=== PATIENT | male | born 1995 | race Caucasian/White ===

== ENCOUNTER 2022-02-15 12:49 | Inpatient (IN) ==
[2022-02-15] MEDS ORDERED: Ketorolac 30 MG/ML VIAL IVP ONE (13:11)
[2022-02-15] MEDS ORDERED: Ipratropium/Albuterol Neb 3 ML IH ONE (13:11)
[2022-02-15] MEDS ORDERED: Albuterol 2.5 MG/3 ML NEBULIZER IH ONE (13:11)
[2022-02-15] MEDS ORDERED: *HR* LORazepam 0.5 MG TABLET PO ONE (13:25)
[2022-02-15] MEDS ORDERED: Vancomycin 1,500 MG/265 ML IV.SOLN IVPB ONE (13:47)
[2022-02-15] MEDS ORDERED: cefTRIAXone 2,000 MG in 0.9 % Sodium Chloride 20 ML IVP ONE (13:47)
[2022-02-15] MEDS ORDERED: Nafcillin 2,000 MG in 0.9 % Sodium Chloride Mini Bag 100 ML IVPB ONE (13:47)
[2022-02-15] MEDS ORDERED: Iopamidol - 370 500 ML MLS IVP ONE (14:09)
[2022-02-15] MEDS: 0.9 % Sodium Chloride 1,000 ML IVC ONE ×2 (14:36→20:11)
[2022-02-15 14:41] LABS: Basophils % 0.1 %; Eosinophils # 0.1 K/mcL (0.0-0.6); Eosinophils % 0.6 %; Hematocrit 21.6 % (37.5-50.1); Hemoglobin 6.8 g/dL (12.9-16.9); Immature Granulocytes % 0.6 % (0-4); Lymphocytes # 1.8 K/mcL (0.6-4.6); Lymphocytes % 20.4 %; Mean Corpuscular HGB Conc 31.5 g/dL (31.6-35.5); Mean Corpuscular Hemoglobin 25.1 pg (28.0-33.3); Mean Corpuscular Volume 79.7 fL (83.0-100.0); Mean Platelet Volume 10.1 fL (9.4-12.4); Monocytes # 0.7 K/mcL (0.0-1.3); Monocytes % 7.7 %; Neutrophils # 6.1 K/mcL (1.6-8.9); Platelet Count 304 K/mcL (140-400); Red Blood Count 2.71 M/mcL (4.19-5.50); Red Cell Distribution Width 16.7 % (11.5-14.5); Segmented Neutrophils % 70.6 %; White Blood Count 8.6 K/mcL (4.3-11.1)
[2022-02-15 15:09] LABS: Alanine Aminotransferase 7 Units/L (7-52); Albumin 2.9 g/dL (3.5-5.7); Albumin/Globulin Ratio 0.7 (1.1-2.2); Alkaline Phosphatase 58 Units/L (34-104); Aspartate Amino Transferase 11 Units/L (13-39); BUN/Creatinine Ratio 11 (6-26); Bilirubin,Direct 0.2 mg/dL (0.0-0.2); Bilirubin,Indirect 0.3 mg/dL (0.0-1.0); Bilirubin,Total 0.5 mg/dL (0.3-1.0); Blood Urea Nitrogen 8 mg/dL (6-20); Carbon Dioxide 28 mEq/L (23-29); Chloride 94 mEq/L (98-107); Globulin 4.4 g/dL (2.4-3.5); Glucose 115 mg/dL (70-105); Lipase < 3 Units/L (11-82); Osmolality,Calculated 267 (280-300); Potassium 3.9 mEq/L (3.5-5.1); Sodium 129 mEq/L (136-145); Total Protein 7.3 g/dL (6.4-8.9); Troponin I < 0.03 ng/mL (< 0.04); eGFR For African Americans > 60 (> 60); eGFR For Non-African Americans > 60 (> 60)
[2022-02-15] MEDS ORDERED: *HR* LORazepam 2 MG/ML VIAL IVP ONE (15:42)
[2022-02-15] MEDS ORDERED: 0.9 % Sodium Chloride 1,000 ML IVC ONE (16:24)
[2022-02-15] MEDS ORDERED: Perflutren Lipid Microsphere 1.3 ML in 0.9 % Sodium Chloride 8.7 ML IVP PRN (16:33)
[2022-02-15] MEDS ORDERED: Nicotine 2 MG GUM BC PRN (16:36)
[2022-02-15] MEDS ORDERED: *HR* LORazepam 2 MG/ML VIAL IVP PRN ×2 (17:01→20:51)
[2022-02-15] MEDS ORDERED: Ondansetron 4 MG/2 ML VIAL IVP PRN (17:12)
[2022-02-15] MEDS ORDERED: Melatonin 3 MG TABLET PO PRN (17:12)
[2022-02-15] MEDS ORDERED: Naloxone 0.4 MG/ML INJ IVP PRN (17:12)
[2022-02-15] MEDS ORDERED: Acetaminophen 325 MG TABLET PO PRN (17:12)
[2022-02-15] MEDS: Nafcillin 3,000 MG in 0.9 % Sodium Chloride 100 ML IVPB SCH (20:12)
[2022-02-15] MEDS: Nicotine 14 MG PATCH.TD24 TD SCH (20:12)
[2022-02-15] MEDS ORDERED: D5% in Water 1,000 ML IVC PRN (20:46)
[2022-02-15] MEDS ORDERED: *HR* Dextrose 50 % in Water (Syg) 50 ML SYRINGE IVP PRN (20:46)
[2022-02-15] MEDS ORDERED: Dextrose Gel 15 GM/37.5 ML TUBE PO PRN ×2 (20:46)
[2022-02-15] MEDS ORDERED: *HR* Dextrose 50 % in Water (Syg) 50 ML SYRINGE ONE (20:47)
[2022-02-15] MEDS ORDERED: *HR* LORazepam 2 MG/ML VIAL ONE (20:55)
[2022-02-15] MEDS ORDERED: 0.9 % Sodium Chloride 250 ML ONE (22:16)
[2022-02-16 04:33] LABS: Hemoglobin 7.2 g/dL (12.9-16.9); Mean Corpuscular HGB Conc 31.3 g/dL (31.6-35.5); Mean Corpuscular Hemoglobin 24.4 pg (28.0-33.3); Mean Platelet Volume 10.4 fL (9.4-12.4); Platelet Count 265 K/mcL (140-400); Red Blood Count 2.95 M/mcL (4.19-5.50); Red Cell Distribution Width 16.5 % (11.5-14.5); White Blood Count 7.2 K/mcL (4.3-11.1)
[2022-02-16 04:33] LABS: VBG HCO3 27 mEq/L (21-27); VBG PCO2 41 mmHg (41-51); VBG PH 7.43 pH Units (7.32-7.42); VBG PO2 207 mmHg (25-50)
[2022-02-16] MEDS: Nafcillin 3,000 MG in 0.9 % Sodium Chloride 100 ML IVPB SCH ×2 (04:54→05:47)
[2022-02-16 04:55] LABS: Alanine Aminotransferase 5 Units/L (7-52); Albumin 2.4 g/dL (3.5-5.7); Albumin/Globulin Ratio 0.6 (1.1-2.2); Alkaline Phosphatase 48 Units/L (34-104); Aspartate Amino Transferase 9 Units/L (13-39); BUN/Creatinine Ratio 17 (6-26); Bilirubin,Direct 0.2 mg/dL (0.0-0.2); Bilirubin,Indirect 0.5 mg/dL (0.0-1.0); Bilirubin,Total 0.7 mg/dL (0.3-1.0); Blood Urea Nitrogen 11 mg/dL (6-20); Calcium 7.5 mg/dL (8.6-10.3); Carbon Dioxide 26 mEq/L (23-29); Chloride 103 mEq/L (98-107); Globulin 3.8 g/dL (2.4-3.5); Glucose 107 mg/dL (70-105); Osmolality,Calculated 280 (280-300); Phosphorous 2.9 mg/dL (2.7-4.5); Potassium 4.2 mEq/L (3.5-5.1); Sodium 135 mEq/L (136-145); Total Protein 6.2 g/dL (6.4-8.9); eGFR For African Americans > 60 (> 60); eGFR For Non-African Americans > 60 (> 60)
[2022-02-16 05:14] LABS: Prothrombin Time 22.5 Seconds (9.4-12.1)
[2022-02-16] MEDS ORDERED: Calcium Gluconate 1gm/50mL 1 GM/50 ML BAG IVPB ONE (06:21)
[2022-02-16 06:47] LABS: Amphetamine Screen,Urine Negative ng/mL (Cutoff=1000); Barbiturate Screen,Urine Negative ng/mL (Cutoff=200)
[2022-02-16 06:48] LABS: Benzodiazepines Screen,Urine Positive ng/mL (Cutoff=300); Cannabinoid Screen,Urine Negative ng/mL (Cutoff = 50); Cocaine Screen,Urine Negative ng/mL (Cutoff= 300); Opiate Screen,Urine Negative ng/mL (Cutoff=300); Phencyclidine Screen,Urine Negative ng/mL (Cutoff=25)
[2022-02-16 08:08] LABS: Immature Reticulocyte % 5.6 % (11.0-38.0); Retculocyte # 0.03 M/mcL (0.05-0.10); Reticulocyte % 0.9 % (1.6-2.8)
[2022-02-16] MEDS: Nicotine 14 MG PATCH.TD24 TD SCH (08:19)
[2022-02-16] MEDS ORDERED: *HR* Propofol 200 MG/20 ML VIAL IVP ONE (08:37)
[2022-02-16] MEDS ORDERED: *HR* FentaNYL (PF) 100 MCG/2 ML VIAL ONE (08:37)
[2022-02-16] MEDS ORDERED: *HR* Midazolam HCl 2 MG/2 ML VIAL ONE (08:37)
[2022-02-16] MEDS ORDERED: Lidocaine HCL 4 ML Topical Solution (Laryng-O-Jet Kit Sterile Pak) TP ONE (08:38)
[2022-02-16] MEDS ORDERED: Ondansetron 4 MG/2 ML VIAL ONE (08:38)
[2022-02-16] MEDS ORDERED: Lidocaine -MPF 2% 5 ML VIAL ONE ×2 (08:38→10:28)
[2022-02-16] MEDS ORDERED: *HR* Rocuronium Bromide 50 MG/5 ML VIAL ONE (08:38)
[2022-02-16] MEDS ORDERED: *HR* Succinylcholine 200 MG/10 ML VIAL IVP ONE (08:38)
[2022-02-16] MEDS ORDERED: *HR* Phenylephrine 10 MG/ML VIAL ONE (08:39)
[2022-02-16] MEDS ORDERED: EPHEDrine 50 MG/ML VIAL ONE (08:39)
[2022-02-16] MEDS ORDERED: Ketamine HCL *QUVA* 50mg (1mL) SYRINGE ONE (08:42)
[2022-02-16] MEDS ORDERED: Dexmedetomidine HCl 400 MCG/100 ML MLS IVC ONE (08:49)
[2022-02-16] MEDS ORDERED: Albumin Human 5% 12.5 GM/250 ML IV.SOLN ONE (09:15)
[2022-02-16 10:39] LABS: Ferritin 457 ng/mL (20-250); Iron < 10 mcg/dL (65-175); Lactate Dehydrogenase 167 Units/L (140-271); Transferrin 160 mg/dL (203-362)
[2022-02-16] MEDS ORDERED: *HR* HYDROMORPHONE 2 MG/ML VIAL ONE (10:46)
[2022-02-16] MEDS ORDERED: *HR* Labetalol 20 MG/4 ML SYRINGE IVP PRN (11:24)
[2022-02-16] MEDS ORDERED: *HR* HYDROmorphone (PF) 1 MG/ML SYRINGE IVP PRN (11:24)
[2022-02-16] MEDS ORDERED: *HR* OxyCODONE Immed Rel 5 MG TABLET PO PRN (11:24)
[2022-02-16] MEDS ORDERED: Pregabalin 75 MG CAPSULE PO ONE (11:24)
[2022-02-16] MEDS ORDERED: *HR* HYDROmorphone 2 MG TABLET PO PRN (11:24)
[2022-02-16] MEDS ORDERED: Famotidine 20 MG/2 ML VIAL IVP ONE (11:24)
[2022-02-16] MEDS ORDERED: *HR* Midazolam HCl 2 MG/2 ML VIAL IVP PRN (11:25)
[2022-02-16 12:07] LABS: Enterococcus faecalis by PCR Not Detected (Not Detect); Enterococcus faecium by PCR Not Detected (Not Detect); Staphylococcus aureus by PCR DETECTED (Not Detect); mecA/C & MREJ (MRSA) Gene Not Detected (Not Detect)
[2022-02-16] MEDS ORDERED: Nicotine 2 MG GUM BC PRN (12:07)
[2022-02-16] MEDS ORDERED: Ondansetron 4 MG/2 ML VIAL IVP PRN (12:07)
[2022-02-16 12:08] LABS: A.calcoaceticus-baumannii cplx Not Detected (Not Detect); Bacteroides fragilis by PCR Not Detected (Not Detect); Candida albicans by PCR Not Detected (Not Detect); Candida auris by PCR Not Detected (Not Detect); Candida glabrata by PCR Not Detected (Not Detect); Candida krusei by PCR Not Detected (Not Detect); Candida parapsilosis by PCR Not Detected (Not Detect); Candida tropicalis by PCR Not Detected (Not Detect); Crypto. neoformans/gattii PCR Not Detected (Not Detect); Enterobacter cloacae Cmplx PCR Not Detected (Not Detect); Enterobacterales by PCR Not Detected (Not Detect); Escherichia coli by PCR Not Detected (Not Detect); Klebs. pneumoniae group by PCR Not Detected (Not Detect); Klebsiella aerogenes by PCR Not Detected (Not Detect); Klebsiella oxytoca by PCR Not Detected (Not Detect); Proteus by PCR Not Detected (Not Detect); Pseudomonas aeruginosa by PCR Not Detected (Not Detect); Salmonella species by PCR Not Detected (Not Detect); Serratia marcescens by PCR Not Detected (Not Detect); Staph epidermidis by PCR Not Detected (Not Detect); Staph lugdunensis by PCR Not Detected (Not Detect); Stenotrophomonas maltophilia Not Detected (Not Detect); Streptococcus agalactiae(B)PCR Not Detected (Not Detect); Streptococcus by PCR DETECTED (Not Detect); Streptococcus pneumoniae PCR Not Detected (Not Detect); Streptococcus pyogenes (A) PCR Not Detected (Not Detect)
[2022-02-16] MEDS: 0.9 % Sodium Chloride 1,000 ML IVC SCH (12:32)
[2022-02-16] MEDS: Ketorolac 30 MG/ML VIAL IVP SCH ×2 (12:36→20:29)
[2022-02-16] MEDS: Ipratropium/Albuterol Neb 3 ML IH SCH ×4 (13:20→22:51)
[2022-02-16] MEDS: SODIUM CHLORIDE 0.9% IVPB SCH (16:06)
[2022-02-16] MEDS: Gabapentin 300 MG CAPSULE PO SCH ×2 (16:06→20:27)
[2022-02-16] MEDS: NAFCILLIN IVPB SCH (16:06)
[2022-02-16] MEDS: *HR* Heparin 5,000 UNIT/ML VIAL SQ SCH ×2 (16:07→20:28)
[2022-02-16 16:19] LABS: Hematocrit 30.8 % (37.5-50.1); Hemoglobin 9.8 g/dL (12.9-16.9)
[2022-02-16] MEDS ORDERED: Nafcillin 3,000 MG in 0.9 % Sodium Chloride 100 ML IVPB SCH (17:00)
[2022-02-16 19:27] LABS: A.calcoaceticus-baumannii cplx Not Detected (Not Detect); Bacteroides fragilis by PCR Not Detected (Not Detect); CTX-M ESBL Gene Not Detected (Not Detect); Candida albicans by PCR Not Detected (Not Detect); Candida auris by PCR Not Detected (Not Detect); Candida glabrata by PCR Not Detected (Not Detect); Candida krusei by PCR Not Detected (Not Detect); Candida parapsilosis by PCR Not Detected (Not Detect); Candida tropicalis by PCR Not Detected (Not Detect); Crypto. neoformans/gattii PCR Not Detected (Not Detect); Enterobacter cloacae Cmplx PCR Not Detected (Not Detect); Enterobacterales by PCR Not Detected (Not Detect); Enterococcus faecalis by PCR Not Detected (Not Detect); Enterococcus faecium by PCR Not Detected (Not Detect); Escherichia coli by PCR Not Detected (Not Detect); IMP Carbapenem-Resist Gene Not Detected (Not Detect); Klebs. pneumoniae group by PCR Not Detected (Not Detect); Klebsiella aerogenes by PCR Not Detected (Not Detect); Klebsiella oxytoca by PCR Not Detected (Not Detect); NDM Carbapenem-Resist Gene Not Detected (Not Detect); OXA-48-like Carbap-Resist Gene Not Detected (Not Detect); Proteus by PCR Not Detected (Not Detect); Pseudomonas aeruginosa by PCR Not Detected (Not Detect); Salmonella species by PCR Not Detected (Not Detect); Serratia marcescens by PCR Not Detected (Not Detect); Staph epidermidis by PCR Not Detected (Not Detect); Staph lugdunensis by PCR Not Detected (Not Detect); Staphylococcus aureus by PCR Not Detected (Not Detect); Staphylococcus by PCR Not Detected (Not Detect); Stenotrophomonas maltophilia Not Detected (Not Detect); Streptococcus agalactiae(B)PCR Not Detected (Not Detect); Streptococcus by PCR DETECTED (Not Detect); Streptococcus pneumoniae PCR Not Detected (Not Detect); Streptococcus pyogenes (A) PCR Not Detected (Not Detect); VIM Carbapenem-Resist Gene Not Detected (Not Detect); blaKPC Carbapenem-Resist Gene Not Detected (Not Detect); mcr-1 Colistin-Resist Gene Not Detected (Not Detect); mecA/C & MREJ (MRSA) Gene Not Detected (Not Detect); mecA/C Methicillin-Resist Gene Not Detected (Not Detect); vanA/B Vancomycin-Resist Genes Not Detected (Not Detect)
[2022-02-16] MEDS: Melatonin 3 MG TABLET PO PRN (20:28)
[2022-02-16] MEDS: Famotidine 20 MG TABLET PO SCH (20:28)
[2022-02-16] MEDS: Sennosides/Docusate Sodium TABLET PO SCH (20:28)
[2022-02-17] MEDS: 0.9 % Sodium Chloride 1,000 ML IVC SCH ×2 (01:48→14:46)
[2022-02-17] MEDS: Ipratropium/Albuterol Neb 3 ML IH SCH ×6 (04:06→23:34)
[2022-02-17 04:07] LABS: Hematocrit 33.5 % (37.5-50.1); Hemoglobin 10.6 g/dL (12.9-16.9); Mean Corpuscular HGB Conc 31.6 g/dL (31.6-35.5); Mean Corpuscular Hemoglobin 25.7 pg (28.0-33.3); Mean Corpuscular Volume 81.1 fL (83.0-100.0); Mean Platelet Volume 10.4 fL (9.4-12.4); Platelet Count 335 K/mcL (140-400); Red Blood Count 4.13 M/mcL (4.19-5.50)
[2022-02-17 04:09] LABS: White Blood Count 12.4 K/mcL (4.3-11.1)
[2022-02-17] MEDS: *HR* LORazepam 2 MG/ML VIAL IVP PRN ×2 (04:09→21:09)
[2022-02-17 04:29] LABS: Rheumatoid Factor 13 IU/mL (Less than 14)
[2022-02-17 04:32] LABS: BUN/Creatinine Ratio 22 (6-26); Blood Urea Nitrogen 15 mg/dL (6-20); Calcium 7.7 mg/dL (8.6-10.3); Carbon Dioxide 28 mEq/L (23-29); Chloride 103 mEq/L (98-107); Glucose 137 mg/dL (70-105); Osmolality,Calculated 285 (280-300); Potassium 4.7 mEq/L (3.5-5.1); Sodium 136 mEq/L (136-145); eGFR For African Americans > 60 (> 60); eGFR For Non-African Americans > 60 (> 60)
[2022-02-17] MEDS: *HR* Heparin 5,000 UNIT/ML VIAL SQ SCH ×3 (05:01→21:09)
[2022-02-17] MEDS: Ketorolac 30 MG/ML VIAL IVP SCH ×4 (05:01→23:46)
[2022-02-17] MEDS: *HR* HYDROcodone/Acet 5/325 mg TABLET PO PRN ×2 (08:40→19:59)
[2022-02-17] MEDS: Sennosides/Docusate Sodium TABLET PO SCH ×2 (08:41→19:58)
[2022-02-17] MEDS: Gabapentin 300 MG CAPSULE PO SCH ×3 (08:41→19:59)
[2022-02-17] MEDS: Famotidine 20 MG TABLET PO SCH ×2 (08:41→19:58)
[2022-02-17] MEDS: Nicotine 14 MG PATCH.TD24 TD SCH (08:53)
[2022-02-17] MEDS ORDERED: Lidocaine Viscous Oral Soln 15 ML SOLUTION MM PRN (12:28)
[2022-02-17] MEDS ORDERED: 0.9 % Sodium Chloride 500 ML IVC ONE (12:28)
[2022-02-17] MEDS ORDERED: *HR* Vasopressin 20 UNIT/ML VIAL ONE (12:29)
[2022-02-17] MEDS ORDERED: *HR* Propofol 200 MG/20 ML VIAL IVP ONE (12:36)
[2022-02-17] MEDS ORDERED: *HR* FentaNYL (PF) 100 MCG/2 ML VIAL ONE (12:36)
[2022-02-17] MEDS ORDERED: Ketamine HCL *QUVA* 50mg (1mL) SYRINGE ONE (12:36)
[2022-02-17] MEDS ORDERED: *HR* Midazolam HCl 2 MG/2 ML VIAL ONE (12:36)
[2022-02-17] MEDS ORDERED: EPHEDrine 50 MG/ML VIAL ONE (12:37)
[2022-02-17] MEDS: SODIUM CHLORIDE 0.9% IVPB SCH (14:46)
[2022-02-17] MEDS: NAFCILLIN IVPB SCH (14:46)
[2022-02-17] MEDS: Melatonin 3 MG TABLET PO PRN (19:59)
[2022-02-18] MEDS: 0.9 % Sodium Chloride 1,000 ML IVC SCH ×2 (03:13→16:21)
[2022-02-18 03:46] LABS: Hematocrit 25.4 % (37.5-50.1); Mean Corpuscular HGB Conc 31.1 g/dL (31.6-35.5); Mean Corpuscular Hemoglobin 25.1 pg (28.0-33.3); Mean Corpuscular Volume 80.6 fL (83.0-100.0); Mean Platelet Volume 10.6 fL (9.4-12.4); Platelet Count 317 K/mcL (140-400); Red Blood Count 3.15 M/mcL (4.19-5.50); Red Cell Distribution Width 16.9 % (11.5-14.5); White Blood Count 11.3 K/mcL (4.3-11.1)
[2022-02-18] MEDS: *HR* HYDROcodone/Acet 5/325 mg TABLET PO PRN ×3 (04:00→16:19)
[2022-02-18 04:05] LABS: BUN/Creatinine Ratio 16 (6-26); Blood Urea Nitrogen 12 mg/dL (6-20); Calcium 7.1 mg/dL (8.6-10.3); Carbon Dioxide 27 mEq/L (23-29); Chloride 105 mEq/L (98-107); Glucose 111 mg/dL (70-105); Osmolality,Calculated 280 (280-300); Sodium 135 mEq/L (136-145); eGFR For African Americans > 60 (> 60); eGFR For Non-African Americans > 60 (> 60)
[2022-02-18 04:15] LABS: Hemoglobin 7.9 g/dL (12.9-16.9)
[2022-02-18] MEDS: Ipratropium/Albuterol Neb 3 ML IH SCH ×5 (04:43→21:34)
[2022-02-18] MEDS: *HR* LORazepam 2 MG/ML VIAL IVP PRN ×2 (05:09→20:13)
[2022-02-18] MEDS: Ketorolac 30 MG/ML VIAL IVP SCH ×3 (06:14→18:11)
[2022-02-18] MEDS: *HR* Heparin 5,000 UNIT/ML VIAL SQ SCH ×3 (06:14→20:13)
[2022-02-18] MEDS: Nicotine 14 MG PATCH.TD24 TD SCH (08:21)
[2022-02-18] MEDS: Gabapentin 300 MG CAPSULE PO SCH ×3 (08:22→20:12)
[2022-02-18] MEDS: Famotidine 20 MG TABLET PO SCH ×2 (08:22→20:12)
[2022-02-18] MEDS: Sennosides/Docusate Sodium TABLET PO SCH ×2 (08:22→20:12)
[2022-02-18] MEDS: NAFCILLIN IVPB SCH (11:52)
[2022-02-18] MEDS: SODIUM CHLORIDE 0.9% IVPB SCH (11:52)
[2022-02-18] MEDS: Melatonin 3 MG TABLET PO PRN (20:12)
[2022-02-19] MEDS: *HR* HYDROcodone/Acet 5/325 mg TABLET PO PRN ×4 (00:04→20:43)
[2022-02-19] MEDS: Ketorolac 30 MG/ML VIAL IVP SCH ×5 (00:04→19:42)
[2022-02-19] MEDS: Ipratropium/Albuterol Neb 3 ML IH SCH ×6 (00:10→20:12)
[2022-02-19] MEDS: *HR* LORazepam 2 MG/ML VIAL IVP PRN ×2 (03:33→10:00)
[2022-02-19 03:55] LABS: Basophils % 0.1 %; Eosinophils # 0.3 K/mcL (0.0-0.6); Eosinophils % 2.5 %; Hematocrit 25.1 % (37.5-50.1); Hemoglobin 7.9 g/dL (12.9-16.9); Immature Granulocytes % 0.7 % (0-4); Lymphocytes # 2.4 K/mcL (0.6-4.6); Lymphocytes % 23.5 %; Mean Corpuscular HGB Conc 31.5 g/dL (31.6-35.5); Mean Corpuscular Hemoglobin 25.2 pg (28.0-33.3); Mean Corpuscular Volume 80.2 fL (83.0-100.0); Monocytes # 0.6 K/mcL (0.0-1.3); Monocytes % 5.3 %; Neutrophils # 7.1 K/mcL (1.6-8.9); Platelet Count 323 K/mcL (140-400); Red Blood Count 3.13 M/mcL (4.19-5.50); Red Cell Distribution Width 16.7 % (11.5-14.5); Segmented Neutrophils % 67.9 %; White Blood Count 10.4 K/mcL (4.3-11.1)
[2022-02-19 04:34] LABS: BUN/Creatinine Ratio 9 (6-26); Blood Urea Nitrogen 5 mg/dL (6-20); Calcium 7.6 mg/dL (8.6-10.3); Carbon Dioxide 25 mEq/L (23-29); Chloride 107 mEq/L (98-107); Glucose 96 mg/dL (70-105); Magnesium 1.8 mg/dL (1.6-2.6); Osmolality,Calculated 279 (280-300); Potassium 3.9 mEq/L (3.5-5.1); Sodium 136 mEq/L (136-145); eGFR For African Americans > 60 (> 60); eGFR For Non-African Americans > 60 (> 60)
[2022-02-19] MEDS: 0.9 % Sodium Chloride 1,000 ML IVC SCH (05:37)
[2022-02-19] MEDS ORDERED: hydrALAZINE 10 MG TABLET PO PRN ×2 (06:00)
[2022-02-19] MEDS: *HR* Heparin 5,000 UNIT/ML VIAL SQ SCH ×3 (06:47→20:44)
[2022-02-19] MEDS: Famotidine 20 MG TABLET PO SCH ×2 (09:52→20:43)
[2022-02-19] MEDS: Nicotine 14 MG PATCH.TD24 TD SCH (09:53)
[2022-02-19] MEDS: Gabapentin 300 MG CAPSULE PO SCH ×3 (09:53→20:43)
[2022-02-19] MEDS: Sennosides/Docusate Sodium TABLET PO SCH ×2 (09:53→20:43)
[2022-02-19] MEDS: SODIUM CHLORIDE 0.9% IVPB SCH (12:32)
[2022-02-19] MEDS: NAFCILLIN IVPB SCH (12:32)
[2022-02-19 13:28] LABS: Hepatitis C Virus Antibody Nonreactive (Nonreactive)
[2022-02-19 13:42] LABS: HIV-1&2 Antibody & p24 Ag Nonreactive (Nonreactive)
[2022-02-19] MEDS: Loratadine 10 MG TABLET PO SCH (15:41)
[2022-02-19] MEDS: Nafcillin 3,000 MG in 0.9 % Sodium Chloride 100 ML IVPB SCH (19:42)
[2022-02-19] MEDS: Melatonin 3 MG TABLET PO PRN (20:44)
[2022-02-20] MEDS: Ipratropium/Albuterol Neb 3 ML IH SCH ×7 (00:15→23:52)
[2022-02-20] MEDS: Ketorolac 30 MG/ML VIAL IVP SCH ×5 (00:41→22:08)
[2022-02-20] MEDS: *HR* Heparin 5,000 UNIT/ML VIAL SQ SCH ×3 (06:08→20:23)
[2022-02-20 06:31] LABS: Basophils % 0.1 %; Eosinophils # 0.4 K/mcL (0.0-0.6); Eosinophils % 3.9 %; Hematocrit 25.5 % (37.5-50.1); Hemoglobin 8.1 g/dL (12.9-16.9); Immature Granulocytes % 0.7 % (0-4); Lymphocytes # 2.1 K/mcL (0.6-4.6); Lymphocytes % 20.1 %; Mean Corpuscular HGB Conc 31.8 g/dL (31.6-35.5); Mean Corpuscular Hemoglobin 25.1 pg (28.0-33.3); Mean Corpuscular Volume 78.9 fL (83.0-100.0); Mean Platelet Volume 9.9 fL (9.4-12.4); Monocytes # 0.7 K/mcL (0.0-1.3); Monocytes % 7.1 %; Platelet Count 369 K/mcL (140-400); Red Blood Count 3.23 M/mcL (4.19-5.50); Red Cell Distribution Width 16.5 % (11.5-14.5); Segmented Neutrophils % 68.1 %; White Blood Count 10.3 K/mcL (4.3-11.1)
[2022-02-20 06:49] LABS: BUN/Creatinine Ratio 7 (6-26); Blood Urea Nitrogen 4 mg/dL (6-20); Calcium 7.9 mg/dL (8.6-10.3); Carbon Dioxide 27 mEq/L (23-29); Chloride 105 mEq/L (98-107); Glucose 103 mg/dL (70-105); Magnesium 1.8 mg/dL (1.6-2.6); Osmolality,Calculated 279 (280-300); Potassium 3.8 mEq/L (3.5-5.1); Sodium 136 mEq/L (136-145); eGFR For African Americans > 60 (> 60); eGFR For Non-African Americans > 60 (> 60)
[2022-02-20] MEDS: Nicotine 14 MG PATCH.TD24 TD SCH (08:22)
[2022-02-20] MEDS: Gabapentin 300 MG CAPSULE PO SCH ×3 (08:29→20:22)
[2022-02-20] MEDS: Sennosides/Docusate Sodium TABLET PO SCH ×2 (08:29→20:22)
[2022-02-20] MEDS: Loratadine 10 MG TABLET PO SCH (08:29)
[2022-02-20] MEDS: Famotidine 20 MG TABLET PO SCH ×2 (08:29→20:22)
[2022-02-20] MEDS ORDERED: Vancomycin 1,250 MG/262.5 ML IV.SOLN IVPB SCH ×2 (12:00→21:00)
[2022-02-20] MEDS: *HR* LORazepam 2 MG/ML VIAL IVP PRN (22:08)
[2022-02-21] MEDS: Melatonin 3 MG TABLET PO PRN (00:06)
[2022-02-21] MEDS: Ipratropium/Albuterol Neb 3 ML IH SCH ×6 (04:01→23:11)
[2022-02-21] MEDS: Ketorolac 30 MG/ML VIAL IVP SCH (05:10)
[2022-02-21] MEDS: *HR* Heparin 5,000 UNIT/ML VIAL SQ SCH ×3 (05:11→19:40)
[2022-02-21] MEDS: *HR* LORazepam 2 MG/ML VIAL IVP PRN ×3 (05:29→22:34)
[2022-02-21 06:08] LABS: Basophils % 0.1 %; Eosinophils # 0.6 K/mcL (0.0-0.6); Eosinophils % 5.2 %; Hematocrit 24.6 % (37.5-50.1); Hemoglobin 7.6 g/dL (12.9-16.9); Immature Granulocytes % 0.7 % (0-4); Lymphocytes # 2.1 K/mcL (0.6-4.6); Lymphocytes % 20.3 %; Mean Corpuscular HGB Conc 30.9 g/dL (31.6-35.5); Mean Corpuscular Hemoglobin 24.4 pg (28.0-33.3); Mean Corpuscular Volume 79.1 fL (83.0-100.0); Mean Platelet Volume 9.9 fL (9.4-12.4); Monocytes # 0.6 K/mcL (0.0-1.3); Neutrophils # 7.1 K/mcL (1.6-8.9); Platelet Count 383 K/mcL (140-400); Red Blood Count 3.11 M/mcL (4.19-5.50); Red Cell Distribution Width 16.8 % (11.5-14.5); Segmented Neutrophils % 67.7 %; White Blood Count 10.5 K/mcL (4.3-11.1)
[2022-02-21 07:00] LABS: BUN/Creatinine Ratio 9 (6-26); Blood Urea Nitrogen 5 mg/dL (6-20); Carbon Dioxide 24 mEq/L (23-29); Chloride 106 mEq/L (98-107); Glucose 112 mg/dL (70-105); Magnesium 1.7 mg/dL (1.6-2.6); Osmolality,Calculated 282 (280-300); Potassium 3.9 mEq/L (3.5-5.1); Sodium 137 mEq/L (136-145); eGFR For African Americans > 60 (> 60); eGFR For Non-African Americans > 60 (> 60)
[2022-02-21] MEDS: Fluconazole 400 MG/200 ML 400 MG/200 ML BAG IVPB SCH ×2 (09:27→11:32)
[2022-02-21] MEDS: Sennosides/Docusate Sodium TABLET PO SCH ×2 (09:28→19:30)
[2022-02-21] MEDS: Famotidine 20 MG TABLET PO SCH ×2 (09:28→19:40)
[2022-02-21] MEDS: Gabapentin 300 MG CAPSULE PO SCH ×3 (09:28→19:39)
[2022-02-21] MEDS: Nicotine 14 MG PATCH.TD24 TD SCH (09:28)
[2022-02-21] MEDS: *HR* HYDROcodone/Acet 5/325 mg TABLET PO PRN ×3 (09:35→19:39)
[2022-02-21] MEDS: Loratadine 10 MG TABLET PO SCH (12:57)
[2022-02-21] MEDS ORDERED: Vancomycin 500 MG in 0.9 % Sodium Chloride Mini Bag 100 ML IVPB ONE (14:30)
[2022-02-21] MEDS: Vancomycin 1,500 MG/265 ML IV.SOLN IVPB SCH (19:40)
[2022-02-21] MEDS: traZODone 50 MG TABLET PO PRN (21:24)
[2022-02-22] MEDS: *HR* LORazepam 2 MG/ML VIAL IVP PRN ×4 (03:28→20:14)
[2022-02-22] MEDS: Ipratropium/Albuterol Neb 3 ML IH SCH ×6 (03:48→22:45)
[2022-02-22 04:34] LABS: Hematocrit 25.6 % (37.5-50.1); Mean Corpuscular HGB Conc 31.3 g/dL (31.6-35.5); Mean Corpuscular Hemoglobin 25.1 pg (28.0-33.3); Mean Corpuscular Volume 80.3 fL (83.0-100.0); Mean Platelet Volume 9.7 fL (9.4-12.4); Platelet Count 426 K/mcL (140-400); Red Blood Count 3.19 M/mcL (4.19-5.50)
[2022-02-22 04:52] LABS: BUN/Creatinine Ratio 10 (6-26); Blood Urea Nitrogen 6 mg/dL (6-20); Calcium 8.2 mg/dL (8.6-10.3); Carbon Dioxide 24 mEq/L (23-29); Chloride 104 mEq/L (98-107); Glucose 111 mg/dL (70-105); Osmolality,Calculated 286 (280-300); Sodium 139 mEq/L (136-145); eGFR For African Americans > 60 (> 60); eGFR For Non-African Americans > 60 (> 60)
[2022-02-22] MEDS: Vancomycin 1,500 MG/265 ML IV.SOLN IVPB SCH ×2 (05:12→14:39)
[2022-02-22] MEDS: *HR* Heparin 5,000 UNIT/ML VIAL SQ SCH ×3 (05:12→17:27)
[2022-02-22] MEDS: *HR* HYDROcodone/Acet 5/325 mg TABLET PO PRN ×3 (07:43→21:55)
[2022-02-22] MEDS: Loratadine 10 MG TABLET PO SCH (07:43)
[2022-02-22] MEDS: Gabapentin 300 MG CAPSULE PO SCH ×3 (07:43→20:14)
[2022-02-22] MEDS: Famotidine 20 MG TABLET PO SCH ×2 (07:43→20:14)
[2022-02-22] MEDS: Fluconazole 400 MG/200 ML 400 MG/200 ML BAG IVPB SCH (07:44)
[2022-02-22] MEDS: Nicotine 14 MG PATCH.TD24 TD SCH (07:44)
[2022-02-22] MEDS: Sennosides/Docusate Sodium TABLET PO SCH ×2 (07:44→19:29)
[2022-02-22] MEDS: Fluconazole 200 MG/100 ML IVPB SCH (09:54)
[2022-02-22] MEDS: traZODone 50 MG TABLET PO PRN (21:55)
[2022-02-22] MEDS: Melatonin 3 MG TABLET PO PRN (21:55)
[2022-02-22] MEDS: Vancomycin 1,750 MG/517.5 ML IV.SOLN IVPB SCH (22:07)
[2022-02-23 02:20] LABS: BUN/Creatinine Ratio 15 (6-26); Blood Urea Nitrogen 8 mg/dL (6-20); Calcium 8.2 mg/dL (8.6-10.3); Carbon Dioxide 25 mEq/L (23-29); Chloride 106 mEq/L (98-107); Glucose 125 mg/dL (70-105); Osmolality,Calculated 286 (280-300); Potassium 3.9 mEq/L (3.5-5.1); Sodium 138 mEq/L (136-145); eGFR For African Americans > 60 (> 60); eGFR For Non-African Americans > 60 (> 60)
[2022-02-23] MEDS: Ipratropium/Albuterol Neb 3 ML IH SCH ×6 (03:54→22:50)
[2022-02-23] MEDS: Vancomycin 1,750 MG/517.5 ML IV.SOLN IVPB SCH (05:27)
[2022-02-23] MEDS: *HR* Heparin 5,000 UNIT/ML VIAL SQ SCH ×3 (06:25→20:49)
[2022-02-23] MEDS: Famotidine 20 MG TABLET PO SCH ×2 (07:20→20:56)
[2022-02-23] MEDS: Gabapentin 300 MG CAPSULE PO SCH ×3 (07:20→20:56)
[2022-02-23] MEDS: Nicotine 14 MG PATCH.TD24 TD SCH (07:21)
[2022-02-23] MEDS: Loratadine 10 MG TABLET PO SCH (07:21)
[2022-02-23] MEDS: Fluconazole 400 MG/200 ML 400 MG/200 ML BAG IVPB SCH (07:21)
[2022-02-23] MEDS: Sennosides/Docusate Sodium TABLET PO SCH ×2 (07:21→20:57)
[2022-02-23] MEDS: *HR* HYDROcodone/Acet 5/325 mg TABLET PO PRN (07:21)
[2022-02-23] MEDS: *HR* LORazepam 2 MG/ML VIAL IVP PRN ×2 (08:43→22:32)
[2022-02-23] MEDS: Fluconazole 200 MG/100 ML IVPB SCH (14:38)
[2022-02-23] MEDS ORDERED: *HR* HYDROmorphone (PF) 1 MG/ML SYRINGE IVP ONE (14:41)
[2022-02-23] MEDS: Vancomycin 1,500 MG/265 ML IV.SOLN IVPB SCH (17:04)
[2022-02-23] MEDS: *HR* HYDROmorphone (PF) 1 MG/ML SYRINGE IVP PRN ×2 (18:23→20:48)
[2022-02-24] MEDS: Vancomycin 1,500 MG/265 ML IV.SOLN IVPB SCH ×3 (00:07→18:54)
[2022-02-24] MEDS: *HR* HYDROmorphone (PF) 1 MG/ML SYRINGE IVP PRN ×8 (00:08→22:31)
[2022-02-24] MEDS: Ipratropium/Albuterol Neb 3 ML IH SCH ×6 (03:31→23:07)
[2022-02-24 05:25] LABS: Hematocrit 27.5 % (37.5-50.1); Hemoglobin 8.4 g/dL (12.9-16.9); Mean Corpuscular HGB Conc 30.5 g/dL (31.6-35.5); Mean Corpuscular Hemoglobin 24.7 pg (28.0-33.3); Mean Corpuscular Volume 80.9 fL (83.0-100.0); Platelet Count 454 K/mcL (140-400); Red Cell Distribution Width 17.2 % (11.5-14.5); White Blood Count 14.1 K/mcL (4.3-11.1)
[2022-02-24 05:47] LABS: BUN/Creatinine Ratio 10 (6-26); Blood Urea Nitrogen 6 mg/dL (6-20); Calcium 8.2 mg/dL (8.6-10.3); Carbon Dioxide 27 mEq/L (23-29); Chloride 101 mEq/L (98-107); Glucose 95 mg/dL (70-105); Osmolality,Calculated 275 (280-300); Potassium 4.4 mEq/L (3.5-5.1); Sodium 134 mEq/L (136-145); eGFR For African Americans > 60 (> 60); eGFR For Non-African Americans > 60 (> 60)
[2022-02-24] MEDS: *HR* Heparin 5,000 UNIT/ML VIAL SQ SCH ×3 (06:09→22:31)
[2022-02-24] MEDS: Nicotine 14 MG PATCH.TD24 TD SCH (07:58)
[2022-02-24] MEDS: Sennosides/Docusate Sodium TABLET PO SCH ×2 (07:59→19:34)
[2022-02-24] MEDS: Gabapentin 300 MG CAPSULE PO SCH ×3 (07:59→19:54)
[2022-02-24] MEDS: Famotidine 20 MG TABLET PO SCH ×2 (07:59→19:54)
[2022-02-24] MEDS: *HR* HYDROcodone/Acet 5/325 mg TABLET PO PRN (07:59)
[2022-02-24] MEDS: Fluconazole 400 MG/200 ML 400 MG/200 ML BAG IVPB SCH (08:04)
[2022-02-24] MEDS: Fluconazole 200 MG/100 ML IVPB SCH (11:28)
[2022-02-24] MEDS: Loratadine 10 MG TABLET PO SCH (18:54)
[2022-02-25] MEDS: *HR* HYDROmorphone (PF) 1 MG/ML SYRINGE IVP PRN ×5 (01:37→19:10)
[2022-02-25] MEDS: Vancomycin 1,500 MG/265 ML IV.SOLN IVPB SCH ×3 (01:37→19:07)
[2022-02-25] MEDS: Ipratropium/Albuterol Neb 3 ML IH SCH ×3 (04:10→11:18)
[2022-02-25] MEDS: *HR* Heparin 5,000 UNIT/ML VIAL SQ SCH (05:08)
[2022-02-25] MEDS: Famotidine 20 MG TABLET PO SCH ×2 (08:38→20:14)
[2022-02-25] MEDS: Nicotine 14 MG PATCH.TD24 TD SCH (08:38)
[2022-02-25] MEDS: Sennosides/Docusate Sodium TABLET PO SCH ×2 (08:38→19:52)
[2022-02-25] MEDS: Gabapentin 300 MG CAPSULE PO SCH ×3 (08:38→20:14)
[2022-02-25] MEDS: Fluconazole 400 MG/200 ML 400 MG/200 ML BAG IVPB SCH (08:39)
[2022-02-25 10:14] LABS: Hematocrit 27.1 % (37.5-50.1); Hemoglobin 8.2 g/dL (12.9-16.9); Mean Corpuscular HGB Conc 30.3 g/dL (31.6-35.5); Mean Corpuscular Hemoglobin 24.8 pg (28.0-33.3); Mean Corpuscular Volume 81.9 fL (83.0-100.0); Platelet Count 477 K/mcL (140-400); Red Blood Count 3.31 M/mcL (4.19-5.50); Red Cell Distribution Width 16.9 % (11.5-14.5); White Blood Count 13.3 K/mcL (4.3-11.1)
[2022-02-25 10:21] LABS: BUN/Creatinine Ratio 8 (6-26); Blood Urea Nitrogen 5 mg/dL (6-20); Calcium 8.5 mg/dL (8.6-10.3); Carbon Dioxide 28 mEq/L (23-29); Chloride 101 mEq/L (98-107); Glucose 99 mg/dL (70-105); Osmolality,Calculated 277 (280-300); Sodium 135 mEq/L (136-145); eGFR For African Americans > 60 (> 60); eGFR For Non-African Americans > 60 (> 60)
[2022-02-25] MEDS: Fluconazole 200 MG/100 ML IVPB SCH (11:51)
[2022-02-25] MEDS: cefTRIAXone 2,000 MG in 0.9 % Sodium Chloride 20 ML IVP SCH (11:51)
[2022-02-25] MEDS ORDERED: Ipratropium/Albuterol Neb 3 ML IH PRN (12:46)
[2022-02-25] MEDS: Loratadine 10 MG TABLET PO SCH (17:32)
[2022-02-26] MEDS: *HR* HYDROmorphone (PF) 1 MG/ML SYRINGE IVP PRN ×3 (01:02→18:00)
[2022-02-26] MEDS: Vancomycin 1,500 MG/265 ML IV.SOLN IVPB SCH ×2 (01:02→08:35)
[2022-02-26 04:26] LABS: BUN/Creatinine Ratio 10 (6-26); Blood Urea Nitrogen 5 mg/dL (6-20); Calcium 8.1 mg/dL (8.6-10.3); Carbon Dioxide 28 mEq/L (23-29); Chloride 102 mEq/L (98-107); Glucose 102 mg/dL (70-105); Osmolality,Calculated 281 (280-300); Potassium 3.8 mEq/L (3.5-5.1); Sodium 137 mEq/L (136-145); eGFR For African Americans > 60 (> 60); eGFR For Non-African Americans > 60 (> 60)
[2022-02-26] MEDS: *HR* Enoxaparin 40 MG/0.4 ML SYRINGE SQ SCH (05:43)
[2022-02-26] MEDS: cefTRIAXone 2,000 MG in 0.9 % Sodium Chloride 20 ML IVP SCH (08:33)
[2022-02-26] MEDS: Famotidine 20 MG TABLET PO SCH ×2 (08:33→20:09)
[2022-02-26] MEDS: Gabapentin 300 MG CAPSULE PO SCH ×3 (08:33→20:09)
[2022-02-26] MEDS: Fluconazole 400 MG/200 ML 400 MG/200 ML BAG IVPB SCH (08:34)
[2022-02-26] MEDS: Nicotine 14 MG PATCH.TD24 TD SCH (08:34)
[2022-02-26] MEDS: Sennosides/Docusate Sodium TABLET PO SCH ×2 (08:35→19:29)
[2022-02-26] MEDS: Fluconazole 200 MG/100 ML IVPB SCH (11:58)
[2022-02-26] MEDS: Loratadine 10 MG TABLET PO SCH (17:55)
[2022-02-26] MEDS: Vancomycin 1,250 MG/262.5 ML IV.SOLN IVPB SCH (17:56)
[2022-02-27] MEDS: *HR* HYDROmorphone (PF) 1 MG/ML SYRINGE IVP PRN ×4 (01:49→22:51)
[2022-02-27] MEDS: Vancomycin 1,250 MG/262.5 ML IV.SOLN IVPB SCH ×3 (01:50→18:07)
[2022-02-27 02:38] LABS: BUN/Creatinine Ratio 8 (6-26); Basophils % 0.3 %; Blood Urea Nitrogen 5 mg/dL (6-20); Calcium 8.4 mg/dL (8.6-10.3); Carbon Dioxide 27 mEq/L (23-29); Chloride 102 mEq/L (98-107); Eosinophils # 0.7 K/mcL (0.0-0.6); Eosinophils % 4.9 %; Glucose 86 mg/dL (70-105); Hematocrit 26.1 % (37.5-50.1); Immature Granulocytes % 1.3 % (0-4); Lymphocytes # 3.6 K/mcL (0.6-4.6); Lymphocytes % 26.8 %; Mean Corpuscular HGB Conc 30.7 g/dL (31.6-35.5); Mean Corpuscular Hemoglobin 24.9 pg (28.0-33.3); Mean Corpuscular Volume 81.3 fL (83.0-100.0); Mean Platelet Volume 9.6 fL (9.4-12.4); Monocytes # 0.7 K/mcL (0.0-1.3); Monocytes % 5.2 %; Osmolality,Calculated 281 (280-300); Platelet Count 418 K/mcL (140-400); Potassium 4.5 mEq/L (3.5-5.1); Red Blood Count 3.21 M/mcL (4.19-5.50); Red Cell Distribution Width 16.9 % (11.5-14.5); Segmented Neutrophils % 61.5 %; Sodium 137 mEq/L (136-145); White Blood Count 13.6 K/mcL (4.3-11.1); eGFR For African Americans > 60 (> 60); eGFR For Non-African Americans > 60 (> 60)
[2022-02-27 03:02] LABS: Neutrophils # 8.4 K/mcL (1.6-8.9)
[2022-02-27] MEDS: *HR* Enoxaparin 40 MG/0.4 ML SYRINGE SQ SCH ×2 (06:02→06:04)
[2022-02-27] MEDS: Nicotine 14 MG PATCH.TD24 TD SCH (09:12)
[2022-02-27] MEDS: Sennosides/Docusate Sodium TABLET PO SCH ×2 (09:13→20:38)
[2022-02-27] MEDS: Famotidine 20 MG TABLET PO SCH ×2 (09:13→20:37)
[2022-02-27] MEDS: Gabapentin 300 MG CAPSULE PO SCH ×3 (09:13→20:37)
[2022-02-27] MEDS: cefTRIAXone 2,000 MG in 0.9 % Sodium Chloride 20 ML IVP SCH (09:13)
[2022-02-27] MEDS: Fluconazole 400 MG/200 ML 400 MG/200 ML BAG IVPB SCH (09:14)
[2022-02-27] MEDS: Fluconazole 200 MG/100 ML IVPB SCH (10:28)
[2022-02-27] MEDS: Loratadine 10 MG TABLET PO SCH (18:07)
[2022-02-27] MEDS: Vancomycin 1,500 MG/265 ML IV.SOLN IVPB SCH (19:46)
[2022-02-27] MEDS: *HR* LORazepam 1 MG TABLET PO PRN (22:51)
[2022-02-28] MEDS: Vancomycin 1,250 MG/262.5 ML IV.SOLN IVPB SCH ×3 (02:17→20:02)
[2022-02-28] MEDS: *HR* LORazepam 1 MG TABLET PO PRN ×2 (03:18→21:23)
[2022-02-28] MEDS: *HR* Enoxaparin 40 MG/0.4 ML SYRINGE SQ SCH (04:39)
[2022-02-28] MEDS ORDERED: Norepinephrine 4 MG in 0.9 % Sodium Chloride 250 ML IVC PRN (07:00)
[2022-02-28] MEDS ORDERED: del Nido Cardioplegia Solution PF ONE ×2 (07:00)
[2022-02-28] MEDS ORDERED: Heparin 15,000 UNIT in 0.9 % Sodium Chloride 500 ML IR ONE (07:00)
[2022-02-28] MEDS ORDERED: Buckersberg's Blood Cardioplegia PF ONE (07:00)
[2022-02-28] MEDS: Fluconazole 400 MG/200 ML 400 MG/200 ML BAG IVPB SCH (08:04)
[2022-02-28] MEDS: cefTRIAXone 2,000 MG in 0.9 % Sodium Chloride 20 ML IVP SCH (08:05)
[2022-02-28] MEDS: Famotidine 20 MG TABLET PO SCH ×2 (08:05→21:23)
[2022-02-28] MEDS: Nicotine 14 MG PATCH.TD24 TD SCH (08:05)
[2022-02-28] MEDS: Gabapentin 300 MG CAPSULE PO SCH ×3 (08:05→21:23)
[2022-02-28] MEDS: Sennosides/Docusate Sodium TABLET PO SCH ×2 (08:05→21:23)
[2022-02-28] MEDS: *HR* HYDROmorphone (PF) 1 MG/ML SYRINGE IVP PRN (08:07)
[2022-02-28] MEDS: Fluconazole 200 MG/100 ML IVPB SCH (10:16)
[2022-02-28 10:42] LABS: BUN/Creatinine Ratio 8 (6-26); Blood Urea Nitrogen 5 mg/dL (6-20); Calcium 8.7 mg/dL (8.6-10.3); Carbon Dioxide 30 mEq/L (23-29); Chloride 102 mEq/L (98-107); Glucose 87 mg/dL (70-105); Osmolality,Calculated 285 (280-300); Potassium 4.1 mEq/L (3.5-5.1); Sodium 139 mEq/L (136-145); Vancomycin,Trough 17 mcg/mL (5-10); eGFR For African Americans > 60 (> 60); eGFR For Non-African Americans > 60 (> 60)
[2022-02-28] MEDS: *HR* HYDROcodone/Acet 7.5/325 mg TABLET PO PRN ×2 (13:18→19:44)
[2022-02-28] MEDS: Loratadine 10 MG TABLET PO SCH (18:15)
[2022-02-28] MEDS: traZODone 50 MG TABLET PO PRN (21:22)
[2022-02-28] MEDS: Ibuprofen 400 MG TABLET PO PRN (21:24)
[2022-02-28] MEDS: Melatonin 3 MG TABLET PO PRN (21:24)
[2022-03-01 03:12] LABS: BUN/Creatinine Ratio 11 (6-26); Blood Urea Nitrogen 6 mg/dL (6-20); Calcium 8.7 mg/dL (8.6-10.3); Carbon Dioxide 29 mEq/L (23-29); Chloride 105 mEq/L (98-107); Glucose 99 mg/dL (70-105); Osmolality,Calculated 290 (280-300); Potassium 3.4 mEq/L (3.5-5.1); Sodium 141 mEq/L (136-145)
[2022-03-01] MEDS: Vancomycin 1,250 MG/262.5 ML IV.SOLN IVPB SCH ×3 (03:12→18:21)
[2022-03-01] MEDS: *HR* LORazepam 1 MG TABLET PO PRN ×2 (03:18→22:45)
[2022-03-01] MEDS: *HR* HYDROcodone/Acet 7.5/325 mg TABLET PO PRN ×4 (03:18→22:45)
[2022-03-01] MEDS: *HR* Enoxaparin 40 MG/0.4 ML SYRINGE SQ SCH ×2 (06:28→06:31)
[2022-03-01] MEDS: Famotidine 20 MG TABLET PO SCH ×2 (10:08→20:08)
[2022-03-01] MEDS: Gabapentin 300 MG CAPSULE PO SCH ×3 (10:08→20:08)
[2022-03-01] MEDS: Fluconazole 400 MG/200 ML 400 MG/200 ML BAG IVPB SCH (10:08)
[2022-03-01] MEDS: Sennosides/Docusate Sodium TABLET PO SCH ×2 (10:08→20:08)
[2022-03-01] MEDS: Nicotine 14 MG PATCH.TD24 TD SCH (10:09)
[2022-03-01] MEDS: Fluconazole 200 MG/100 ML IVPB SCH (12:12)
[2022-03-01] MEDS: Loratadine 10 MG TABLET PO SCH (18:14)
[2022-03-01] MEDS: Ibuprofen 400 MG TABLET PO PRN (18:15)
[2022-03-01] MEDS: traZODone 50 MG TABLET PO PRN (22:44)
[2022-03-01] MEDS: Melatonin 3 MG TABLET PO PRN (22:45)
[2022-03-02] MEDS: Vancomycin 1,250 MG/262.5 ML IV.SOLN IVPB SCH ×3 (02:37→16:17)
[2022-03-02] MEDS: *HR* Enoxaparin 40 MG/0.4 ML SYRINGE SQ SCH (05:23)
[2022-03-02] MEDS: Fluconazole 400 MG/200 ML 400 MG/200 ML BAG IVPB SCH (07:49)
[2022-03-02] MEDS: *HR* HYDROcodone/Acet 7.5/325 mg TABLET PO PRN (07:50)
[2022-03-02] MEDS: Famotidine 20 MG TABLET PO SCH ×2 (07:50→19:59)
[2022-03-02] MEDS: Gabapentin 300 MG CAPSULE PO SCH ×3 (07:50→19:59)
[2022-03-02] MEDS: Nicotine 14 MG PATCH.TD24 TD SCH (07:50)
[2022-03-02] MEDS: Sennosides/Docusate Sodium TABLET PO SCH ×2 (07:51→19:58)
[2022-03-02] MEDS: *HR* LORazepam 1 MG TABLET PO PRN ×3 (07:51→20:00)
[2022-03-02 08:07] LABS: Basophils # 0.1 K/mcL (0.0-0.2); Basophils % 0.5 %; Eosinophils # 0.3 K/mcL (0.0-0.6); Eosinophils % 2.4 %; Hematocrit 30.5 % (37.5-50.1); Hemoglobin 9.1 g/dL (12.9-16.9); Immature Granulocytes % 0.8 % (0-4); Lymphocytes # 3.4 K/mcL (0.6-4.6); Lymphocytes % 32.1 %; Mean Corpuscular HGB Conc 29.8 g/dL (31.6-35.5); Mean Corpuscular Hemoglobin 24.8 pg (28.0-33.3); Mean Corpuscular Volume 83.1 fL (83.0-100.0); Mean Platelet Volume 8.8 fL (9.4-12.4); Monocytes # 0.6 K/mcL (0.0-1.3); Monocytes % 5.3 %; Neutrophils # 6.3 K/mcL (1.6-8.9); Platelet Count 506 K/mcL (140-400); Red Blood Count 3.67 M/mcL (4.19-5.50); Red Cell Distribution Width 16.8 % (11.5-14.5); Segmented Neutrophils % 58.9 %; White Blood Count 10.6 K/mcL (4.3-11.1)
[2022-03-02 09:58] LABS: BUN/Creatinine Ratio 13 (6-26); Blood Urea Nitrogen 8 mg/dL (6-20); Calcium 8.7 mg/dL (8.6-10.3); Carbon Dioxide 24 mEq/L (23-29); Chloride 109 mEq/L (98-107); Glucose 97 mg/dL (70-105); Osmolality,Calculated 290 (280-300); Potassium 5.1 mEq/L (3.5-5.1); Sodium 141 mEq/L (136-145)
[2022-03-02] MEDS: Fluconazole 200 MG/100 ML IVPB SCH (10:42)
[2022-03-02] MEDS: *HR* OxyCODONE Immed Rel 5 MG TABLET PO PRN ×2 (14:07→19:59)
[2022-03-02] MEDS: Loratadine 10 MG TABLET PO SCH (16:18)
[2022-03-02] MEDS ORDERED: Ketorolac 30 MG/ML VIAL IVP ONE (16:19)
[2022-03-02] MEDS: traZODone 50 MG TABLET PO PRN (19:59)
[2022-03-02] MEDS: Melatonin 3 MG TABLET PO PRN (19:59)
[2022-03-03] MEDS: Vancomycin 1,250 MG/262.5 ML IV.SOLN IVPB SCH ×3 (01:58→16:58)
[2022-03-03] MEDS: *HR* Enoxaparin 40 MG/0.4 ML SYRINGE SQ SCH ×2 (05:28→07:24)
[2022-03-03] MEDS: Gabapentin 300 MG CAPSULE PO SCH ×3 (07:53→21:34)
[2022-03-03] MEDS: Nicotine 14 MG PATCH.TD24 TD SCH (07:53)
[2022-03-03] MEDS: Fluconazole 400 MG/200 ML 400 MG/200 ML BAG IVPB SCH (07:53)
[2022-03-03] MEDS: Famotidine 20 MG TABLET PO SCH ×2 (07:54→21:36)
[2022-03-03] MEDS: Sennosides/Docusate Sodium TABLET PO SCH ×2 (07:54→21:36)
[2022-03-03] MEDS: *HR* LORazepam 1 MG TABLET PO PRN ×3 (07:54→23:59)
[2022-03-03] MEDS: *HR* OxyCODONE Immed Rel 5 MG TABLET PO PRN ×3 (07:54→21:40)
[2022-03-03 09:35] LABS: Basophils # 0.1 K/mcL (0.0-0.2); Basophils % 0.7 %; Eosinophils # 0.3 K/mcL (0.0-0.6); Eosinophils % 3.5 %; Hematocrit 28.4 % (37.5-50.1); Hemoglobin 8.4 g/dL (12.9-16.9); Immature Granulocytes % 0.8 % (0-4); Lymphocytes # 2.7 K/mcL (0.6-4.6); Mean Corpuscular HGB Conc 29.6 g/dL (31.6-35.5); Mean Corpuscular Hemoglobin 24.6 pg (28.0-33.3); Mean Platelet Volume 8.7 fL (9.4-12.4); Monocytes # 0.6 K/mcL (0.0-1.3); Monocytes % 6.4 %; Neutrophils # 5.5 K/mcL (1.6-8.9); Platelet Count 447 K/mcL (140-400); Red Blood Count 3.42 M/mcL (4.19-5.50); Red Cell Distribution Width 16.7 % (11.5-14.5); Segmented Neutrophils % 59.6 %; White Blood Count 9.2 K/mcL (4.3-11.1)
[2022-03-03] MEDS: Fluconazole 200 MG/100 ML IVPB SCH (09:52)
[2022-03-03 09:55] LABS: BUN/Creatinine Ratio 12 (6-26); Blood Urea Nitrogen 7 mg/dL (6-20); Calcium 8.7 mg/dL (8.6-10.3); Carbon Dioxide 27 mEq/L (23-29); Chloride 106 mEq/L (98-107); Glucose 86 mg/dL (70-105); Osmolality,Calculated 285 (280-300); Potassium 4.1 mEq/L (3.5-5.1); Sodium 139 mEq/L (136-145)
[2022-03-03 15:01] LABS: BUN/Creatinine Ratio 10 (6-26); Blood Urea Nitrogen 7 mg/dL (6-20); Calcium 8.6 mg/dL (8.6-10.3); Carbon Dioxide 25 mEq/L (23-29); Chloride 106 mEq/L (98-107); Glucose 88 mg/dL (70-105); Osmolality,Calculated 285 (280-300); Potassium 4.7 mEq/L (3.5-5.1); Sodium 139 mEq/L (136-145)
[2022-03-03] MEDS: Loratadine 10 MG TABLET PO SCH (16:58)
[2022-03-03] MEDS: traZODone 50 MG TABLET PO PRN (21:38)
[2022-03-03] MEDS: Melatonin 3 MG TABLET PO PRN (23:59)
[2022-03-04] MEDS: Vancomycin 1,250 MG/262.5 ML IV.SOLN IVPB SCH ×3 (03:20→18:00)
[2022-03-04] MEDS: *HR* OxyCODONE Immed Rel 5 MG TABLET PO PRN ×3 (05:22→18:00)
[2022-03-04] MEDS: *HR* Enoxaparin 40 MG/0.4 ML SYRINGE SQ SCH (07:01)
[2022-03-04 10:57] LABS: Basophils # 0.1 K/mcL (0.0-0.2); Basophils % 0.6 %; Eosinophils # 0.4 K/mcL (0.0-0.6); Eosinophils % 3.9 %; Hematocrit 28.4 % (37.5-50.1); Hemoglobin 8.7 g/dL (12.9-16.9); Immature Granulocytes % 0.4 % (0-4); Lymphocytes # 3.3 K/mcL (0.6-4.6); Lymphocytes % 36.5 %; Mean Corpuscular HGB Conc 30.6 g/dL (31.6-35.5); Mean Corpuscular Hemoglobin 25.1 pg (28.0-33.3); Mean Corpuscular Volume 82.1 fL (83.0-100.0); Mean Platelet Volume 8.9 fL (9.4-12.4); Monocytes # 0.6 K/mcL (0.0-1.3); Monocytes % 6.2 %; Neutrophils # 4.7 K/mcL (1.6-8.9); Platelet Count 411 K/mcL (140-400); Red Blood Count 3.46 M/mcL (4.19-5.50); Red Cell Distribution Width 16.8 % (11.5-14.5); Segmented Neutrophils % 52.4 %; White Blood Count 8.9 K/mcL (4.3-11.1)
[2022-03-04 11:19] LABS: BUN/Creatinine Ratio 13 (6-26); Blood Urea Nitrogen 8 mg/dL (6-20); Calcium 8.3 mg/dL (8.6-10.3); Carbon Dioxide 27 mEq/L (23-29); Chloride 107 mEq/L (98-107); Glucose 87 mg/dL (70-105); Osmolality,Calculated 290 (280-300); Sodium 141 mEq/L (136-145)
[2022-03-04] MEDS: Gabapentin 300 MG CAPSULE PO SCH ×3 (11:28→20:51)
[2022-03-04] MEDS: Famotidine 20 MG TABLET PO SCH ×2 (11:28→20:51)
[2022-03-04] MEDS: Nicotine 14 MG PATCH.TD24 TD SCH (11:28)
[2022-03-04] MEDS: Fluconazole 200 MG/100 ML IVPB SCH (11:29)
[2022-03-04] MEDS: Fluconazole 400 MG/200 ML 400 MG/200 ML BAG IVPB SCH (11:29)
[2022-03-04] MEDS: Sennosides/Docusate Sodium TABLET PO SCH ×2 (11:32→20:51)
[2022-03-04] MEDS: *HR* LORazepam 1 MG TABLET PO PRN ×2 (13:35→20:59)
[2022-03-04] MEDS: Loratadine 10 MG TABLET PO SCH (17:59)
[2022-03-05] MEDS: traZODone 50 MG TABLET PO PRN ×2 (01:19→22:01)
[2022-03-05] MEDS: Ketorolac 30 MG/ML VIAL IVP PRN ×2 (01:20→22:00)
[2022-03-05] MEDS: Vancomycin 1,250 MG/262.5 ML IV.SOLN IVPB SCH ×3 (01:26→20:19)
[2022-03-05] MEDS: *HR* OxyCODONE Immed Rel 5 MG TABLET PO PRN ×3 (02:43→16:45)
[2022-03-05] MEDS: *HR* Enoxaparin 40 MG/0.4 ML SYRINGE SQ SCH (06:26)
[2022-03-05] MEDS: Famotidine 20 MG TABLET PO SCH ×2 (09:01→20:20)
[2022-03-05] MEDS: Gabapentin 300 MG CAPSULE PO SCH ×3 (09:01→20:19)
[2022-03-05] MEDS: Sennosides/Docusate Sodium TABLET PO SCH ×3 (09:01→20:21)
[2022-03-05] MEDS: Fluconazole 400 MG/200 ML 400 MG/200 ML BAG IVPB SCH (09:01)
[2022-03-05 10:18] LABS: Basophils # 0.1 K/mcL (0.0-0.2); Basophils % 0.7 %; Eosinophils # 0.6 K/mcL (0.0-0.6); Hematocrit 33.3 % (37.5-50.1); Hemoglobin 9.9 g/dL (12.9-16.9); Immature Granulocytes % 0.5 % (0-4); Lymphocytes % 37.9 %; Mean Corpuscular HGB Conc 29.7 g/dL (31.6-35.5); Mean Corpuscular Hemoglobin 25.1 pg (28.0-33.3); Mean Corpuscular Volume 84.5 fL (83.0-100.0); Mean Platelet Volume 8.9 fL (9.4-12.4); Monocytes # 0.9 K/mcL (0.0-1.3); Monocytes % 8.4 %; Neutrophils # 4.9 K/mcL (1.6-8.9); Platelet Count 435 K/mcL (140-400); Red Blood Count 3.94 M/mcL (4.19-5.50); Segmented Neutrophils % 46.5 %; White Blood Count 10.6 K/mcL (4.3-11.1)
[2022-03-05 10:38] LABS: BUN/Creatinine Ratio 20 (6-26); Blood Urea Nitrogen 12 mg/dL (6-20); Calcium 8.7 mg/dL (8.6-10.3); Carbon Dioxide 27 mEq/L (23-29); Chloride 103 mEq/L (98-107); Glucose 76 mg/dL (70-105); Osmolality,Calculated 283 (280-300); Potassium 4.3 mEq/L (3.5-5.1); Sodium 137 mEq/L (136-145)
[2022-03-05 10:46] LABS: Reactive Lymphocytes Present (Not Present)
[2022-03-05] MEDS: Nicotine 14 MG PATCH.TD24 TD SCH (11:16)
[2022-03-05] MEDS: Fluconazole 200 MG/100 ML IVPB SCH (11:22)
[2022-03-05] MEDS: Loratadine 10 MG TABLET PO SCH (16:45)
[2022-03-05] MEDS: *HR* LORazepam 1 MG TABLET PO PRN (20:19)
[2022-03-05] MEDS: Melatonin 3 MG TABLET PO PRN (22:01)
[2022-03-06] MEDS: Vancomycin 1,250 MG/262.5 ML IV.SOLN IVPB SCH ×3 (01:05→18:01)
[2022-03-06 01:53] LABS: Basophils % 0.4 %; Eosinophils # 0.6 K/mcL (0.0-0.6); Eosinophils % 6.1 %; Hematocrit 26.9 % (37.5-50.1); Hemoglobin 8.2 g/dL (12.9-16.9); Immature Granulocytes % 0.3 % (0-4); Lymphocytes # 3.2 K/mcL (0.6-4.6); Lymphocytes % 34.6 %; Mean Corpuscular HGB Conc 30.5 g/dL (31.6-35.5); Mean Corpuscular Hemoglobin 25.2 pg (28.0-33.3); Mean Corpuscular Volume 82.5 fL (83.0-100.0); Mean Platelet Volume 8.9 fL (9.4-12.4); Monocytes # 0.6 K/mcL (0.0-1.3); Neutrophils # 4.9 K/mcL (1.6-8.9); Platelet Count 356 K/mcL (140-400); Red Blood Count 3.26 M/mcL (4.19-5.50); Segmented Neutrophils % 52.6 %; White Blood Count 9.3 K/mcL (4.3-11.1)
[2022-03-06 02:01] LABS: INR 1.1; Prothrombin Time 12.2 Seconds (9.4-12.1)
[2022-03-06 02:03] LABS: Activated Partial Thrombo Time 35.4 Seconds (26.0-36.0)
[2022-03-06 02:18] LABS: Estimated Average Glucose 120 mg/dl; Hemoglobin A1C 5.8 %
[2022-03-06] MEDS: *HR* Enoxaparin 40 MG/0.4 ML SYRINGE SQ SCH (05:41)
[2022-03-06] MEDS: *HR* LORazepam 1 MG TABLET PO PRN (05:46)
[2022-03-06] MEDS ORDERED: Chlorhexidine Rinse 15 ML MOUTHWASH MM SCH (06:00)
[2022-03-06] MEDS ORDERED: Aspirin 81 MG TAB.CHEW PO ONE (06:00)
[2022-03-06] MEDS ORDERED: NiCARdipine 2.5 MG/10 ML Syringe IVPB ONE (06:01)
[2022-03-06] MEDS ORDERED: DOBUTamine 1,000 MG/250 ML BAG ONE (06:01)
[2022-03-06] MEDS ORDERED: *HR* Midazolam HCl 5 MG/5 ML VIAL IVP ONE (06:10)
[2022-03-06] MEDS ORDERED: *HR* FentaNYL (PF) 1,000 MCG/20 ML VIAL ONE (06:10)
[2022-03-06] MEDS ORDERED: *HR* Norepinephrine 4 MG/4 ML VIAL IVC ONE (06:15)
[2022-03-06] MEDS ORDERED: *HR* Rocuronium Bromide 50 MG/5 ML VIAL ONE (06:15)
[2022-03-06] MEDS ORDERED: niCARdipine 20 MG/200 ML MLS IVC ONE (06:15)
[2022-03-06] MEDS ORDERED: *HR* Etomidate 20 MG/10 ML AMPUL IVP ONE (06:19)
[2022-03-06] MEDS ORDERED: Tranexamic Acid 1,000 MG/10 ML VIAL ONE (06:19)
[2022-03-06] MEDS ORDERED: Calcium Gluconate 1,000 MG/10 ML VIAL ONE (06:19)
[2022-03-06] MEDS ORDERED: Protamine Sulfate 250 MG/25 ML VIAL IVP ONE (06:29)
[2022-03-06] MEDS ORDERED: del Nido Cardioplegia Solution PF ONE ×2 (07:00)
[2022-03-06] MEDS ORDERED: Buckersberg's Blood Cardioplegia PF ONE (07:00)
[2022-03-06] MEDS ORDERED: Heparin 15,000 UNIT in 0.9 % Sodium Chloride 500 ML IR ONE (07:00)
[2022-03-06] MEDS ORDERED: Norepinephrine 4 MG in 0.9 % Sodium Chloride 250 ML IVC PRN (07:00)
[2022-03-06] MEDS ORDERED: ceFAZolin 2,000 MG in Water for inj. (sterile) 20 ML IVP ONE (07:44)
[2022-03-06 07:50] LABS: ABG Base Excess 0 mEq/L (-2 to 3); ABG Chloride 105 mEq/L (98-107); ABG Glucose 92 mg/dL (60-95); ABG HCO3 26 mEq/L (21-27); ABG Ionized Calcium 1.23 mmol/L (1.15-1.35); ABG Oxygen Saturation 100 % (95-98); ABG PCO2 49 mmHg (35-45); ABG PH 7.33 pH Units (7.32-7.45); ABG PO2 609 mmHg (85-104); ABG TCO2 28 mEq/L (20-26)
[2022-03-06 08:56] LABS: ABG Base Excess 1 mEq/L (-2 to 3); ABG Chloride 104 mEq/L (98-107); ABG Glucose 114 mg/dL (60-95); ABG HCO3 27 mEq/L (21-27); ABG Ionized Calcium 1.23 mmol/L (1.15-1.35); ABG Oxygen Saturation 100 % (95-98); ABG PCO2 49 mmHg (35-45); ABG PH 7.34 pH Units (7.32-7.45); ABG PO2 236 mmHg (85-104); ABG TCO2 28 mEq/L (20-26)
[2022-03-06 09:13] LABS: ABG Base Excess -1 mEq/L (-2 to 3); ABG Chloride 100 mEq/L (98-107); ABG Glucose 113 mg/dL (60-95); ABG HCO3 26 mEq/L (21-27); ABG Ionized Calcium 1.05 mmol/L (1.15-1.35); ABG Oxygen Saturation 100 % (95-98); ABG PCO2 58 mmHg (35-45); ABG PH 7.26 pH Units (7.32-7.45); ABG PO2 612 mmHg (85-104); ABG TCO2 28 mEq/L (20-26)
[2022-03-06] MEDS ORDERED: Albumin Human 5% 12.5 GM/250 ML IV.SOLN ONE (09:25)
[2022-03-06 09:37] LABS: ABG Base Excess 0 mEq/L (-2 to 3); ABG Chloride 102 mEq/L (98-107); ABG Glucose 153 mg/dL (60-95); ABG HCO3 25 mEq/L (21-27); ABG Ionized Calcium 1.07 mmol/L (1.15-1.35); ABG Oxygen Saturation 100 % (95-98); ABG PCO2 40 mmHg (35-45); ABG PH 7.41 pH Units (7.32-7.45); ABG PO2 564 mmHg (85-104); ABG TCO2 26 mEq/L (20-26)
[2022-03-06] MEDS ORDERED: *HR* Vasopressin 20 UNIT/ML VIAL ONE (10:08)
[2022-03-06 10:14] LABS: ABG Base Excess -4 mEq/L (-2 to 3); ABG Chloride 103 mEq/L (98-107); ABG Glucose 193 mg/dL (60-95); ABG HCO3 24 mEq/L (21-27); ABG Ionized Calcium 1.34 mmol/L (1.15-1.35); ABG Oxygen Saturation 100 % (95-98); ABG PCO2 57 mmHg (35-45); ABG PH 7.23 pH Units (7.32-7.45); ABG PO2 532 mmHg (85-104); ABG TCO2 26 mEq/L (20-26)
[2022-03-06 10:39] LABS: ABG Base Excess -4 mEq/L (-2 to 3); ABG Chloride 104 mEq/L (98-107); ABG Glucose 178 mg/dL (60-95); ABG HCO3 22 mEq/L (21-27); ABG Oxygen Saturation 100 % (95-98); ABG PCO2 42 mmHg (35-45); ABG PH 7.32 pH Units (7.32-7.45); ABG PO2 193 mmHg (85-104); ABG TCO2 23 mEq/L (20-26)
[2022-03-06] MEDS ORDERED: *HR* Promethazine 25 MG/ML VIAL IM PRN (11:25)
[2022-03-06] MEDS ORDERED: Albuterol 2.5 MG/3 ML NEBULIZER IH PRN (11:25)
[2022-03-06] MEDS ORDERED: Albumin Human 5% 12.5 GM/250 ML IV.SOLN IVPB PRN (11:25)
[2022-03-06] MEDS ORDERED: *HR* Dextrose 50 % in Water (Syg) 50 ML SYRINGE IVP PRN (11:25)
[2022-03-06] MEDS ORDERED: Acetaminophen 325 MG TABLET PO PRN (11:25)
[2022-03-06] MEDS ORDERED: Potassium Chloride 40 MEQ/200 ML BAG IVPB PRN (11:25)
[2022-03-06] MEDS ORDERED: Naloxone 0.4 MG/ML INJ IVP PRN (11:25)
[2022-03-06] MEDS ORDERED: Insulin Regular, Human 100 UNIT/ML IV PRN (11:25)
[2022-03-06] MEDS: Gabapentin 300 MG CAPSULE PO SCH ×3 (11:28→21:14)
[2022-03-06] MEDS: Fluconazole 400 MG/200 ML 400 MG/200 ML BAG IVPB SCH (11:28)
[2022-03-06] MEDS: Famotidine 20 MG TABLET PO SCH ×2 (11:29→21:13)
[2022-03-06] MEDS: Sennosides/Docusate Sodium TABLET PO SCH ×2 (11:29→21:14)
[2022-03-06] MEDS: Fluconazole 200 MG/100 ML IVPB SCH (11:29)
[2022-03-06] MEDS: Nicotine 14 MG PATCH.TD24 TD SCH (11:29)
[2022-03-06 11:39] LABS: ABG Base Excess 2 mEq/L (-2 to 3); ABG HCO3 29 mEq/L (21-27); ABG Oxygen Saturation 100 % (95-98); ABG PCO2 56 mmHg (35-45); ABG PH 7.32 pH Units (7.32-7.45); ABG PO2 258 mmHg (85-104); ABG TCO2 30 mEq/L (20-26); Blood Gas VT 500 cc
[2022-03-06] MEDS: *HR* OxyCODONE Immed Rel 5 MG TABLET PO PRN ×2 (11:40→18:48)
[2022-03-06] MEDS ORDERED: *HR* Metoprolol 5 MG/5 ML VIAL IVP PRN (11:45)
[2022-03-06] MEDS: Ketorolac 30 MG/ML VIAL IVP SCH ×3 (11:48→23:01)
[2022-03-06 11:52] LABS: INR 1.2; Prothrombin Time 13.7 Seconds (9.4-12.1)
[2022-03-06 11:54] LABS: Activated Partial Thrombo Time 29.6 Seconds (26.0-36.0)
[2022-03-06] MEDS: Norepinephrine 4 MG/254 ML IV.SOLN IVC SCH (12:00)
[2022-03-06] MEDS: *HR* FentaNYL (PF) 100 MCG/2 ML VIAL IVP PRN ×4 (12:01→21:49)
[2022-03-06] MEDS ORDERED: Calcium Gluconate 1gm/50mL 1 GM/50 ML BAG IVPB PRN (12:07)
[2022-03-06 12:15] LABS: BUN/Creatinine Ratio 18 (6-26); Blood Urea Nitrogen 11 mg/dL (6-20); Calcium 8.4 mg/dL (8.6-10.3); Carbon Dioxide 28 mEq/L (23-29); Chloride 106 mEq/L (98-107); Glucose 104 mg/dL (70-105); Magnesium 2.6 mg/dL (1.6-2.6); Osmolality,Calculated 290 (280-300); Potassium 4.8 mEq/L (3.5-5.1); Sodium 140 mEq/L (136-145)
[2022-03-06] MEDS: *HR* OxyCODONE/APAP 5/325 TABLET PO PRN ×3 (13:26→23:02)
[2022-03-06] MEDS: *HR* HYDROmorphone (PF) 1 MG/ML SYRINGE IVP PRN ×3 (13:27→23:18)
[2022-03-06 13:30] LABS: Basophils # 0.1 K/mcL (0.0-0.2); Basophils % 0.2 %; Eosinophils # 0.3 K/mcL (0.0-0.6); Eosinophils % 1.1 %; Hematocrit 25.6 % (37.5-50.1); Hemoglobin 7.8 g/dL (12.9-16.9); Immature Granulocytes % 2.3 % (0-4); Lymphocytes # 3.7 K/mcL (0.6-4.6); Lymphocytes % 14.9 %; Mean Corpuscular HGB Conc 30.5 g/dL (31.6-35.5); Mean Corpuscular Hemoglobin 25.3 pg (28.0-33.3); Mean Corpuscular Volume 83.1 fL (83.0-100.0); Mean Platelet Volume 9.1 fL (9.4-12.4); Monocytes # 1.8 K/mcL (0.0-1.3); Monocytes % 7.1 %; Neutrophils # 18.5 K/mcL (1.6-8.9); Platelet Count 384 K/mcL (140-400); Red Blood Count 3.08 M/mcL (4.19-5.50); Red Cell Distribution Width 17.5 % (11.5-14.5); Segmented Neutrophils % 74.4 %
[2022-03-06 13:31] LABS: White Blood Count 24.9 K/mcL (4.3-11.1)
[2022-03-06] MEDS ORDERED: Lidocaine 2% Syringe 100 MG/5 ML IVP ONE (13:32)
[2022-03-06] MEDS ORDERED: Heparin 1,000 UNITS/500 mL IV.SOLN IR ONE (13:32)
[2022-03-06] MEDS ORDERED: Tranexamic Acid 1,000 MG/10 ML VIAL IR ONE (13:32)
[2022-03-06] MEDS ORDERED: *HR* Phenylephrine 10 MG/ML VIAL IVC ONE (13:32)
[2022-03-06] MEDS ORDERED: Sodium Bicarbonate 50 MEQ/50 ML VIAL IVC ONE (13:32)
[2022-03-06] MEDS ORDERED: Mannitol 25% vial 12.5 GM/50 ML VIAL IVPB ONE (13:32)
[2022-03-06] MEDS ORDERED: *HR* Heparin 10,000 UNIT/10 ML VIAL IR ONE (13:32)
[2022-03-06 14:18] LABS: ABG Base Excess 3 mEq/L (-2 to 3); ABG HCO3 28 mEq/L (21-27); ABG Oxygen Saturation 99 % (95-98); ABG PCO2 46 mmHg (35-45); ABG PH 7.39 pH Units (7.32-7.45); ABG PO2 144 mmHg (85-104); ABG TCO2 30 mEq/L (20-26); Blood Gas Pressure Support 5 cm H2O
[2022-03-06 14:20] LABS: Alanine Aminotransferase 8 Units/L (7-52); Albumin 3.2 g/dL (3.5-5.7); Alkaline Phosphatase 69 Units/L (34-104); Aspartate Amino Transferase 24 Units/L (13-39); BUN/Creatinine Ratio 20 (6-26); Bilirubin,Total 0.4 mg/dL (0.3-1.0); Blood Urea Nitrogen 12 mg/dL (6-20); Calcium 8.3 mg/dL (8.6-10.3); Carbon Dioxide 28 mEq/L (23-29); Chloride 104 mEq/L (98-107); Globulin 3.1 g/dL (2.4-3.5); Glucose 126 mg/dL (70-105); Magnesium 2.4 mg/dL (1.6-2.6); Osmolality,Calculated 291 (280-300); Potassium 4.4 mEq/L (3.5-5.1); Sodium 140 mEq/L (136-145); Total Protein 6.3 g/dL (6.4-8.9); Vancomycin,Trough 25 mcg/mL (5-10)
[2022-03-06 16:18] LABS: ABG Base Excess 3 mEq/L (-2 to 3); ABG HCO3 28 mEq/L (21-27); ABG Oxygen Saturation 99 % (95-98); ABG PCO2 47 mmHg (35-45); ABG PH 7.39 pH Units (7.32-7.45); ABG PO2 116 mmHg (85-104); ABG TCO2 30 mEq/L (20-26)
[2022-03-06] MEDS: Loratadine 10 MG TABLET PO SCH (18:06)
[2022-03-06] MEDS: Chlorhexidine Rinse 15 ML MOUTHWASH MM SCH (21:13)
[2022-03-06] MEDS: traZODone 50 MG TABLET PO PRN (21:13)
[2022-03-07] MEDS: *HR* OxyCODONE Immed Rel 5 MG TABLET PO PRN ×3 (03:18→15:24)
[2022-03-07] MEDS: *HR* FentaNYL (PF) 100 MCG/2 ML VIAL IVP PRN ×2 (03:18→08:58)
[2022-03-07] MEDS: Vancomycin 1,250 MG/262.5 ML IV.SOLN IVPB SCH ×3 (03:43→23:05)
[2022-03-07 04:07] LABS: Basophils % 0.2 %; Eosinophils # 0.1 K/mcL (0.0-0.6); Eosinophils % 0.8 %; Hematocrit 22.5 % (37.5-50.1); Hemoglobin 6.9 g/dL (12.9-16.9); Immature Granulocytes % 0.4 % (0-4); Lymphocytes # 2.4 K/mcL (0.6-4.6); Lymphocytes % 21.6 %; Mean Corpuscular HGB Conc 30.7 g/dL (31.6-35.5); Mean Corpuscular Hemoglobin 24.9 pg (28.0-33.3); Mean Corpuscular Volume 81.2 fL (83.0-100.0); Mean Platelet Volume 9.3 fL (9.4-12.4); Monocytes # 0.8 K/mcL (0.0-1.3); Monocytes % 7.2 %; Neutrophils # 7.8 K/mcL (1.6-8.9); Platelet Count 276 K/mcL (140-400); Red Blood Count 2.77 M/mcL (4.19-5.50); Segmented Neutrophils % 69.8 %
[2022-03-07 04:08] LABS: White Blood Count 11.1 K/mcL (4.3-11.1)
[2022-03-07 04:14] LABS: INR 1.2; Prothrombin Time 13.7 Seconds (9.4-12.1)
[2022-03-07 04:17] LABS: Activated Partial Thrombo Time 32.5 Seconds (26.0-36.0)
[2022-03-07 04:26] LABS: BUN/Creatinine Ratio 19 (6-26); Blood Urea Nitrogen 11 mg/dL (6-20); Calcium 8.2 mg/dL (8.6-10.3); Carbon Dioxide 29 mEq/L (23-29); Chloride 101 mEq/L (98-107); Glucose 106 mg/dL (70-105); Osmolality,Calculated 278 (280-300); Potassium 4.8 mEq/L (3.5-5.1); Sodium 134 mEq/L (136-145)
[2022-03-07] MEDS: Ketorolac 30 MG/ML VIAL IVP SCH ×4 (05:38→23:06)
[2022-03-07] MEDS: *HR* Enoxaparin 40 MG/0.4 ML SYRINGE SQ SCH ×2 (05:39→05:41)
[2022-03-07] MEDS: *HR* HYDROmorphone (PF) 1 MG/ML SYRINGE IVP PRN (05:39)
[2022-03-07] MEDS ORDERED: 0.9 % Sodium Chloride 250 ML ONE (06:02)
[2022-03-07] MEDS: Chlorhexidine Rinse 15 ML MOUTHWASH MM SCH ×2 (07:48→20:20)
[2022-03-07] MEDS: Fluconazole 400 MG/200 ML 400 MG/200 ML BAG IVPB SCH (08:57)
[2022-03-07] MEDS: Famotidine 20 MG TABLET PO SCH ×2 (08:58→20:20)
[2022-03-07] MEDS: Furosemide 20 MG/2 ML VIAL IVP SCH ×2 (08:58→18:25)
[2022-03-07] MEDS: Aspirin Enteric Coated 81 MG Tablet PO SCH (08:59)
[2022-03-07] MEDS: Gabapentin 300 MG CAPSULE PO SCH ×3 (08:59→20:19)
[2022-03-07] MEDS: Sennosides/Docusate Sodium TABLET PO SCH ×2 (08:59→20:19)
[2022-03-07] MEDS: Nicotine 14 MG PATCH.TD24 TD SCH (08:59)
[2022-03-07] MEDS: atenoloL 25 MG TABLET PO SCH (09:29)
[2022-03-07] MEDS: Fluconazole 200 MG/100 ML IVPB SCH (10:07)
[2022-03-07] MEDS ORDERED: D5% in Water 1,000 ML IVC PRN (13:04)
[2022-03-07] MEDS ORDERED: Dextrose Gel 15 GM/37.5 ML TUBE PO PRN ×2 (13:04)
[2022-03-07] MEDS ORDERED: *HR* Dextrose 50 % in Water (Syg) 50 ML SYRINGE IVP PRN (13:04)
[2022-03-07] MEDS: Norepinephrine 4 MG/254 ML IV.SOLN IVC SCH (13:24)
[2022-03-07] MEDS: *HR* OxyCODONE/APAP 5/325 TABLET PO PRN ×2 (13:34→20:19)
[2022-03-07] MEDS: Insulin LISPRO 300 UNITS/3 ML VIAL SUBQ SCH (16:58)
[2022-03-07] MEDS: Loratadine 10 MG TABLET PO SCH (18:25)
[2022-03-07] MEDS ORDERED: Insulin LISPRO 300 UNITS/3 ML VIAL SUBQ SCH (21:00)
[2022-03-08 03:50] LABS: VBG Ionized Calcium 1.13 mmol/L (1.15-1.35)
[2022-03-08 03:53] LABS: Basophils % 0.3 %; Eosinophils # 0.4 K/mcL (0.0-0.6); Eosinophils % 4.1 %; Hematocrit 23.2 % (37.5-50.1); Hemoglobin 7.1 g/dL (12.9-16.9); Immature Granulocytes % 0.3 % (0-4); Lymphocytes # 2.6 K/mcL (0.6-4.6); Lymphocytes % 26.7 %; Mean Corpuscular HGB Conc 30.6 g/dL (31.6-35.5); Mean Corpuscular Hemoglobin 25.7 pg (28.0-33.3); Mean Corpuscular Volume 84.1 fL (83.0-100.0); Monocytes # 0.9 K/mcL (0.0-1.3); Neutrophils # 5.9 K/mcL (1.6-8.9); Platelet Count 220 K/mcL (140-400); Red Blood Count 2.76 M/mcL (4.19-5.50); Red Cell Distribution Width 18.3 % (11.5-14.5); Segmented Neutrophils % 59.6 %; White Blood Count 9.8 K/mcL (4.3-11.1)
[2022-03-08 04:12] LABS: Alanine Aminotransferase 9 Units/L (7-52); Albumin 2.9 g/dL (3.5-5.7); Alkaline Phosphatase 75 Units/L (34-104); Aspartate Amino Transferase 15 Units/L (13-39); BUN/Creatinine Ratio 29 (6-26); Bilirubin,Total 0.3 mg/dL (0.3-1.0); Blood Urea Nitrogen 20 mg/dL (6-20); Calcium 8.1 mg/dL (8.6-10.3); Carbon Dioxide 28 mEq/L (23-29); Chloride 104 mEq/L (98-107); Glucose 110 mg/dL (70-105); Magnesium 1.9 mg/dL (1.6-2.6); Osmolality,Calculated 287 (280-300); Phosphorous 3.9 mg/dL (2.7-4.5); Potassium 4.1 mEq/L (3.5-5.1); Sodium 137 mEq/L (136-145); Total Protein 5.9 g/dL (6.4-8.9)
[2022-03-08] MEDS: Vancomycin 1,250 MG/262.5 ML IV.SOLN IVPB SCH ×4 (05:53→22:50)
[2022-03-08] MEDS: *HR* Enoxaparin 40 MG/0.4 ML SYRINGE SQ SCH (05:54)
[2022-03-08] MEDS: Ketorolac 30 MG/ML VIAL IVP SCH ×4 (05:54→23:07)
[2022-03-08] MEDS: *HR* OxyCODONE/APAP 5/325 TABLET PO PRN ×3 (06:02→15:59)
[2022-03-08] MEDS: Furosemide 20 MG/2 ML VIAL IVP SCH (07:56)
[2022-03-08] MEDS: *HR* OxyCODONE Immed Rel 5 MG TABLET PO PRN ×3 (07:56→19:52)
[2022-03-08] MEDS: Gabapentin 300 MG CAPSULE PO SCH ×4 (07:57→19:52)
[2022-03-08] MEDS: Aspirin Enteric Coated 81 MG Tablet PO SCH (07:57)
[2022-03-08] MEDS: Famotidine 20 MG TABLET PO SCH ×2 (07:57→19:52)
[2022-03-08] MEDS: atenoloL 25 MG TABLET PO SCH (07:58)
[2022-03-08] MEDS: Sennosides/Docusate Sodium TABLET PO SCH ×2 (07:58→19:52)
[2022-03-08] MEDS: Chlorhexidine Rinse 15 ML MOUTHWASH MM SCH ×2 (07:58→19:52)
[2022-03-08] MEDS: Nicotine 14 MG PATCH.TD24 TD SCH (07:58)
[2022-03-08] MEDS: Fluconazole 400 MG/200 ML 400 MG/200 ML BAG IVPB SCH (08:02)
[2022-03-08] MEDS: Insulin LISPRO 300 UNITS/3 ML VIAL SUBQ SCH ×4 (08:07→19:53)
[2022-03-08] MEDS: *HR* HYDROmorphone (PF) 1 MG/ML SYRINGE IVP PRN (08:37)
[2022-03-08] MEDS: Fluconazole 200 MG/100 ML IVPB SCH (09:12)
[2022-03-08] MEDS: Norepinephrine 4 MG/254 ML IV.SOLN IVC SCH (09:44)
[2022-03-08] MEDS ORDERED: Furosemide 20 MG TABLET PO PRN ×2 (13:32→14:13)
[2022-03-08] MEDS ORDERED: *HR* OxyCODONE/APAP 5/325 TABLET PO PRN (13:33)
[2022-03-08] MEDS ORDERED: Ondansetron 4 MG/2 ML VIAL IVP PRN (14:13)
[2022-03-08] MEDS ORDERED: Nicotine 2 MG GUM BC PRN (14:13)
[2022-03-08] MEDS ORDERED: Ibuprofen 800 MG TABLET PO PRN (14:13)
[2022-03-08] MEDS ORDERED: Naloxone 0.4 MG/ML INJ IVP PRN (14:13)
[2022-03-08] MEDS ORDERED: Albuterol 2.5 MG/3 ML NEBULIZER IH PRN (14:13)
[2022-03-08] MEDS ORDERED: *HR* LORazepam 1 MG TABLET PO PRN (14:13)
[2022-03-08] MEDS ORDERED: Dextrose Gel 15 GM/37.5 ML TUBE PO PRN ×2 (14:13)
[2022-03-08] MEDS ORDERED: D5% in Water 1,000 ML IVC PRN (14:13)
[2022-03-08] MEDS ORDERED: Ipratropium/Albuterol Neb 3 ML IH PRN (14:13)
[2022-03-08] MEDS ORDERED: *HR* Metoprolol 5 MG/5 ML VIAL IVP PRN (14:13)
[2022-03-08] MEDS ORDERED: *HR* Promethazine 25 MG/ML VIAL IM PRN (14:13)
[2022-03-08] MEDS ORDERED: *HR* Dextrose 50 % in Water (Syg) 50 ML SYRINGE IVP PRN (14:13)
[2022-03-08] MEDS ORDERED: Acetaminophen 325 MG TABLET PO PRN (14:13)
[2022-03-08] MEDS: Loratadine 10 MG TABLET PO SCH (17:17)
[2022-03-08] MEDS: *HR* Heparin 5,000 UNIT/ML VIAL SQ SCH (21:42)
[2022-03-09 03:40] LABS: VBG Ionized Calcium 1.08 mmol/L (1.15-1.35)
[2022-03-09 04:00] LABS: Basophils % 0.3 %; Eosinophils # 0.6 K/mcL (0.0-0.6); Eosinophils % 6.6 %; Hematocrit 21.5 % (37.5-50.1); Hemoglobin 6.6 g/dL (12.9-16.9); Immature Granulocytes % 0.3 % (0-4); Lymphocytes # 2.6 K/mcL (0.6-4.6); Mean Corpuscular HGB Conc 30.7 g/dL (31.6-35.5); Mean Corpuscular Hemoglobin 26.2 pg (28.0-33.3); Mean Corpuscular Volume 85.3 fL (83.0-100.0); Mean Platelet Volume 10.2 fL (9.4-12.4); Monocytes # 0.7 K/mcL (0.0-1.3); Neutrophils # 4.9 K/mcL (1.6-8.9); Platelet Count 201 K/mcL (140-400); Red Blood Count 2.52 M/mcL (4.19-5.50); Red Cell Distribution Width 18.4 % (11.5-14.5); Segmented Neutrophils % 55.8 %; White Blood Count 8.8 K/mcL (4.3-11.1)
[2022-03-09 04:17] LABS: Alanine Aminotransferase 8 Units/L (7-52); Albumin 2.7 g/dL (3.5-5.7); Albumin/Globulin Ratio 0.9 (1.1-2.2); Alkaline Phosphatase 83 Units/L (34-104); Aspartate Amino Transferase 11 Units/L (13-39); BUN/Creatinine Ratio 26 (6-26); Bilirubin,Total 0.3 mg/dL (0.3-1.0); Blood Urea Nitrogen 18 mg/dL (6-20); Carbon Dioxide 27 mEq/L (23-29); Chloride 107 mEq/L (98-107); Globulin 3.1 g/dL (2.4-3.5); Glucose 94 mg/dL (70-105); Magnesium 1.7 mg/dL (1.6-2.6); Osmolality,Calculated 292 (280-300); Phosphorous 4.4 mg/dL (2.7-4.5); Potassium 3.8 mEq/L (3.5-5.1); Sodium 140 mEq/L (136-145); Total Protein 5.8 g/dL (6.4-8.9)
[2022-03-09] MEDS ORDERED: 0.9 % Sodium Chloride 250 ML ONE (04:17)
[2022-03-09] MEDS ORDERED: Calcium Gluconate 1gm/50mL 1 GM/50 ML BAG IVPB ONE (04:30)
[2022-03-09] MEDS ORDERED: Potassium Chloride Elixir 20 MEQ/15 ML UDC PO ONE (04:32)
[2022-03-09] MEDS ORDERED: Magnesium Oxide 400 MG TABLET PO ONE (04:33)
[2022-03-09] MEDS: Vancomycin 1,250 MG/262.5 ML IV.SOLN IVPB SCH ×3 (04:54→20:46)
[2022-03-09] MEDS: *HR* Heparin 5,000 UNIT/ML VIAL SQ SCH ×3 (04:54→20:44)
[2022-03-09] MEDS: Ketorolac 30 MG/ML VIAL IVP SCH ×3 (04:55→18:21)
[2022-03-09] MEDS ORDERED: *HR* Enoxaparin 40 MG/0.4 ML SYRINGE SQ SCH (06:00)
[2022-03-09 08:28] LABS: Hematocrit 25.3 % (37.5-50.1); Hemoglobin 7.9 g/dL (12.9-16.9)
[2022-03-09] MEDS ORDERED: Fluconazole 400 MG/200 ML 400 MG/200 ML BAG IVPB SCH (09:00)
[2022-03-09] MEDS: Insulin LISPRO 300 UNITS/3 ML VIAL SUBQ SCH ×4 (09:09→21:30)
[2022-03-09] MEDS: Nicotine 14 MG PATCH.TD24 TD SCH (09:23)
[2022-03-09] MEDS: Chlorhexidine Rinse 15 ML MOUTHWASH MM SCH ×2 (09:24→20:44)
[2022-03-09] MEDS: Aspirin Enteric Coated 81 MG Tablet PO SCH (09:24)
[2022-03-09] MEDS: Sennosides/Docusate Sodium TABLET PO SCH ×2 (09:24→20:44)
[2022-03-09] MEDS: Famotidine 20 MG TABLET PO SCH ×2 (09:24→20:45)
[2022-03-09] MEDS: Gabapentin 300 MG CAPSULE PO SCH ×3 (09:24→20:45)
[2022-03-09] MEDS: *HR* OxyCODONE Immed Rel 5 MG TABLET PO PRN ×2 (09:25→21:04)
[2022-03-09] MEDS: atenoloL 25 MG TABLET PO SCH (09:25)
[2022-03-09] MEDS ORDERED: Fluconazole 200 MG/100 ML 200 MG/100 ML BAG IVPB SCH (10:00)
[2022-03-09] MEDS ORDERED: *HR* LORazepam 2 MG/ML VIAL IVP PRN (11:57)
[2022-03-09] MEDS ORDERED: *HR* LORazepam 2 MG/ML VIAL IVP ONE (12:52)
[2022-03-09] MEDS: Loratadine 10 MG TABLET PO SCH (18:21)
[2022-03-09] MEDS: traZODone 50 MG TABLET PO PRN (21:05)
[2022-03-10] MEDS: Ketorolac 30 MG/ML VIAL IVP SCH (00:55)
[2022-03-10] MEDS: Melatonin 3 MG TABLET PO PRN ×2 (00:56→19:24)
[2022-03-10] MEDS: *HR* OxyCODONE/APAP 5/325 TABLET PO PRN ×2 (00:56→08:09)
[2022-03-10 05:35] LABS: Basophils % 0.3 %; Eosinophils # 0.5 K/mcL (0.0-0.6); Eosinophils % 5.9 %; Hematocrit 24.5 % (37.5-50.1); Hemoglobin 7.5 g/dL (12.9-16.9); Immature Granulocytes % 0.3 % (0-4); Lymphocytes # 2.7 K/mcL (0.6-4.6); Lymphocytes % 29.7 %; Mean Corpuscular HGB Conc 30.6 g/dL (31.6-35.5); Mean Corpuscular Hemoglobin 26.2 pg (28.0-33.3); Mean Corpuscular Volume 85.7 fL (83.0-100.0); Mean Platelet Volume 10.4 fL (9.4-12.4); Monocytes # 0.6 K/mcL (0.0-1.3); Monocytes % 6.8 %; Neutrophils # 5.1 K/mcL (1.6-8.9); Platelet Count 222 K/mcL (140-400); Red Blood Count 2.86 M/mcL (4.19-5.50); Red Cell Distribution Width 17.5 % (11.5-14.5)
[2022-03-10 05:54] LABS: Alanine Aminotransferase 9 Units/L (7-52); Albumin 2.8 g/dL (3.5-5.7); Albumin/Globulin Ratio 0.9 (1.1-2.2); Alkaline Phosphatase 83 Units/L (34-104); Aspartate Amino Transferase 11 Units/L (13-39); BUN/Creatinine Ratio 20 (6-26); Bilirubin,Total 0.4 mg/dL (0.3-1.0); Blood Urea Nitrogen 13 mg/dL (6-20); Calcium 8.5 mg/dL (8.6-10.3); Carbon Dioxide 28 mEq/L (23-29); Chloride 107 mEq/L (98-107); Globulin 3.1 g/dL (2.4-3.5); Glucose 90 mg/dL (70-105); Magnesium 1.7 mg/dL (1.6-2.6); Osmolality,Calculated 292 (280-300); Phosphorous 4.9 mg/dL (2.7-4.5); Potassium 4.1 mEq/L (3.5-5.1); Sodium 141 mEq/L (136-145); Total Protein 5.9 g/dL (6.4-8.9)
[2022-03-10] MEDS: Vancomycin 1,250 MG/262.5 ML IV.SOLN IVPB SCH ×3 (08:00→20:49)
[2022-03-10] MEDS: Aspirin Enteric Coated 81 MG Tablet PO SCH (08:02)
[2022-03-10] MEDS: Gabapentin 300 MG CAPSULE PO SCH ×3 (08:02→19:54)
[2022-03-10] MEDS: Sennosides/Docusate Sodium TABLET PO SCH ×2 (08:02→19:25)
[2022-03-10] MEDS: Famotidine 20 MG TABLET PO SCH ×2 (08:02→19:25)
[2022-03-10] MEDS: Fluconazole 150 MG TABLET PO SCH (08:02)
[2022-03-10] MEDS: *HR* Heparin 5,000 UNIT/ML VIAL SQ SCH ×3 (08:03→20:49)
[2022-03-10] MEDS: Insulin LISPRO 300 UNITS/3 ML VIAL SUBQ SCH ×4 (08:03→19:48)
[2022-03-10] MEDS: Chlorhexidine Rinse 15 ML MOUTHWASH MM SCH ×2 (08:03→19:26)
[2022-03-10] MEDS: atenoloL 25 MG TABLET PO SCH (08:04)
[2022-03-10] MEDS: Nicotine 14 MG PATCH.TD24 TD SCH ×2 (08:04→19:35)
[2022-03-10] MEDS ORDERED: *HR* OxyCODONE Immed Rel 5 MG TABLET PO SCH (14:00)
[2022-03-10] MEDS: Loratadine 10 MG TABLET PO SCH (17:00)
[2022-03-10] MEDS: *HR* OxyCODONE Immed Rel 5 MG TABLET PO SCH (19:25)
[2022-03-10] MEDS: traZODone 50 MG TABLET PO PRN (19:26)
[2022-03-11] MEDS: *HR* OxyCODONE Immed Rel 5 MG TABLET PO SCH ×4 (03:58→20:28)
[2022-03-11] MEDS: *HR* Heparin 5,000 UNIT/ML VIAL SQ SCH ×4 (05:12→21:30)
[2022-03-11] MEDS: Vancomycin 1,250 MG/262.5 ML IV.SOLN IVPB SCH ×3 (05:12→21:55)
[2022-03-11 05:46] LABS: Basophils % 0.2 %; Eosinophils # 0.4 K/mcL (0.0-0.6); Eosinophils % 4.6 %; Hematocrit 25.9 % (37.5-50.1); Hemoglobin 8.1 g/dL (12.9-16.9); Immature Granulocytes % 0.3 % (0-4); Lymphocytes % 21.5 %; Mean Corpuscular HGB Conc 31.3 g/dL (31.6-35.5); Mean Corpuscular Hemoglobin 26.5 pg (28.0-33.3); Mean Corpuscular Volume 84.6 fL (83.0-100.0); Mean Platelet Volume 9.6 fL (9.4-12.4); Monocytes # 0.6 K/mcL (0.0-1.3); Monocytes % 6.8 %; Neutrophils # 6.1 K/mcL (1.6-8.9); Platelet Count 257 K/mcL (140-400); Red Blood Count 3.06 M/mcL (4.19-5.50); Red Cell Distribution Width 17.7 % (11.5-14.5); Segmented Neutrophils % 66.6 %; White Blood Count 9.2 K/mcL (4.3-11.1)
[2022-03-11 06:07] LABS: Alanine Aminotransferase 10 Units/L (7-52); Albumin 3.1 g/dL (3.5-5.7); Albumin/Globulin Ratio 0.9 (1.1-2.2); Alkaline Phosphatase 89 Units/L (34-104); Aspartate Amino Transferase 12 Units/L (13-39); BUN/Creatinine Ratio 11 (6-26); Bilirubin,Total 0.4 mg/dL (0.3-1.0); Blood Urea Nitrogen 8 mg/dL (6-20); Calcium 8.7 mg/dL (8.6-10.3); Carbon Dioxide 29 mEq/L (23-29); Chloride 104 mEq/L (98-107); Globulin 3.3 g/dL (2.4-3.5); Glucose 94 mg/dL (70-105); Magnesium 1.7 mg/dL (1.6-2.6); Osmolality,Calculated 286 (280-300); Phosphorous 4.3 mg/dL (2.7-4.5); Potassium 3.9 mEq/L (3.5-5.1); Sodium 139 mEq/L (136-145); Total Protein 6.4 g/dL (6.4-8.9)
[2022-03-11] MEDS: Fluconazole 150 MG TABLET PO SCH (07:49)
[2022-03-11] MEDS: Nicotine 14 MG PATCH.TD24 TD SCH (07:49)
[2022-03-11] MEDS: Sennosides/Docusate Sodium TABLET PO SCH ×2 (07:50→19:46)
[2022-03-11] MEDS: Famotidine 20 MG TABLET PO SCH ×2 (07:50→20:28)
[2022-03-11] MEDS: Aspirin Enteric Coated 81 MG Tablet PO SCH (07:50)
[2022-03-11] MEDS: atenoloL 25 MG TABLET PO SCH (07:50)
[2022-03-11] MEDS: Gabapentin 300 MG CAPSULE PO SCH ×3 (07:50→20:28)
[2022-03-11] MEDS: Chlorhexidine Rinse 15 ML MOUTHWASH MM SCH ×2 (07:54→19:45)
[2022-03-11] MEDS: Insulin LISPRO 300 UNITS/3 ML VIAL SUBQ SCH ×4 (08:00→19:45)
[2022-03-11] MEDS: Ketorolac 30 MG/ML VIAL IVP SCH ×2 (11:02→17:05)
[2022-03-11] MEDS: Loratadine 10 MG TABLET PO SCH (17:06)
[2022-03-11] MEDS: traZODone 50 MG TABLET PO PRN (20:28)
[2022-03-11] MEDS: Melatonin 3 MG TABLET PO PRN (20:28)
[2022-03-12] MEDS: Ketorolac 30 MG/ML VIAL IVP SCH ×4 (00:09→17:50)
[2022-03-12] MEDS: *HR* OxyCODONE Immed Rel 5 MG TABLET PO SCH ×4 (03:48→20:12)
[2022-03-12] MEDS: *HR* Heparin 5,000 UNIT/ML VIAL SQ SCH ×3 (04:51→20:12)
[2022-03-12] MEDS: Vancomycin 1,250 MG/262.5 ML IV.SOLN IVPB SCH ×3 (04:51→22:22)
[2022-03-12 05:02] LABS: Basophils % 0.3 %; Eosinophils # 0.5 K/mcL (0.0-0.6); Eosinophils % 6.7 %; Hematocrit 25.8 % (37.5-50.1); Hemoglobin 7.9 g/dL (12.9-16.9); Immature Granulocytes % 0.3 % (0-4); Lymphocytes # 2.1 K/mcL (0.6-4.6); Lymphocytes % 28.5 %; Mean Corpuscular HGB Conc 30.6 g/dL (31.6-35.5); Mean Corpuscular Hemoglobin 26.2 pg (28.0-33.3); Mean Corpuscular Volume 85.7 fL (83.0-100.0); Mean Platelet Volume 9.7 fL (9.4-12.4); Monocytes # 0.6 K/mcL (0.0-1.3); Monocytes % 8.6 %; Neutrophils # 4.1 K/mcL (1.6-8.9); Platelet Count 233 K/mcL (140-400); Red Blood Count 3.01 M/mcL (4.19-5.50); Red Cell Distribution Width 17.7 % (11.5-14.5); Segmented Neutrophils % 55.6 %; White Blood Count 7.4 K/mcL (4.3-11.1)
[2022-03-12 05:17] LABS: Alanine Aminotransferase 7 Units/L (7-52); Albumin 2.9 g/dL (3.5-5.7); Albumin/Globulin Ratio 0.9 (1.1-2.2); Alkaline Phosphatase 84 Units/L (34-104); Aspartate Amino Transferase 10 Units/L (13-39); BUN/Creatinine Ratio 14 (6-26); Bilirubin,Total 0.3 mg/dL (0.3-1.0); Blood Urea Nitrogen 9 mg/dL (6-20); Calcium 8.3 mg/dL (8.6-10.3); Carbon Dioxide 27 mEq/L (23-29); Chloride 106 mEq/L (98-107); Globulin 3.3 g/dL (2.4-3.5); Glucose 96 mg/dL (70-105); Magnesium 1.6 mg/dL (1.6-2.6); Osmolality,Calculated 287 (280-300); Phosphorous 4.5 mg/dL (2.7-4.5); Potassium 3.9 mEq/L (3.5-5.1); Sodium 139 mEq/L (136-145); Total Protein 6.2 g/dL (6.4-8.9)
[2022-03-12] MEDS: Nicotine 14 MG PATCH.TD24 TD SCH (07:36)
[2022-03-12] MEDS: Fluconazole 150 MG TABLET PO SCH (07:36)
[2022-03-12] MEDS: Aspirin Enteric Coated 81 MG Tablet PO SCH (07:37)
[2022-03-12] MEDS: Sennosides/Docusate Sodium TABLET PO SCH ×2 (07:37→20:12)
[2022-03-12] MEDS: Famotidine 20 MG TABLET PO SCH ×2 (07:37→22:21)
[2022-03-12] MEDS: Gabapentin 300 MG CAPSULE PO SCH ×3 (07:38→22:22)
[2022-03-12] MEDS: atenoloL 25 MG TABLET PO SCH (07:38)
[2022-03-12] MEDS: Chlorhexidine Rinse 15 ML MOUTHWASH MM SCH ×2 (09:35→20:12)
[2022-03-12] MEDS: Insulin LISPRO 300 UNITS/3 ML VIAL SUBQ SCH ×4 (09:36→20:12)
[2022-03-12] MEDS: Loratadine 10 MG TABLET PO SCH (17:50)
[2022-03-12] MEDS: traZODone 50 MG TABLET PO PRN (22:21)
[2022-03-12] MEDS: Melatonin 3 MG TABLET PO PRN (22:22)
[2022-03-13] MEDS: Ketorolac 30 MG/ML VIAL IVP SCH ×4 (00:15→18:35)
[2022-03-13] MEDS: *HR* OxyCODONE Immed Rel 5 MG TABLET PO SCH ×4 (03:10→22:17)
[2022-03-13] MEDS: Vancomycin 1,250 MG/262.5 ML IV.SOLN IVPB SCH ×3 (06:15→18:35)
[2022-03-13] MEDS: *HR* Heparin 5,000 UNIT/ML VIAL SQ SCH ×3 (06:16→20:38)
[2022-03-13] MEDS: Insulin LISPRO 300 UNITS/3 ML VIAL SUBQ SCH ×4 (08:02→20:38)
[2022-03-13] MEDS: Famotidine 20 MG TABLET PO SCH ×2 (08:31→20:55)
[2022-03-13] MEDS: Gabapentin 300 MG CAPSULE PO SCH ×3 (08:31→20:55)
[2022-03-13] MEDS: Fluconazole 150 MG TABLET PO SCH (08:32)
[2022-03-13] MEDS: Nicotine 14 MG PATCH.TD24 TD SCH (08:32)
[2022-03-13] MEDS: atenoloL 25 MG TABLET PO SCH (08:32)
[2022-03-13] MEDS: Sennosides/Docusate Sodium TABLET PO SCH ×2 (08:32→20:55)
[2022-03-13] MEDS: Aspirin Enteric Coated 81 MG Tablet PO SCH (08:32)
[2022-03-13] MEDS: Chlorhexidine Rinse 15 ML MOUTHWASH MM SCH ×2 (08:33→20:51)
[2022-03-13 10:44] LABS: Basophils % 0.4 %; Eosinophils # 0.5 K/mcL (0.0-0.6); Eosinophils % 6.6 %; Hematocrit 28.6 % (37.5-50.1); Hemoglobin 8.7 g/dL (12.9-16.9); Immature Granulocytes % 0.1 % (0-4); Lymphocytes # 1.6 K/mcL (0.6-4.6); Mean Corpuscular HGB Conc 30.4 g/dL (31.6-35.5); Mean Corpuscular Hemoglobin 25.9 pg (28.0-33.3); Mean Corpuscular Volume 85.1 fL (83.0-100.0); Mean Platelet Volume 9.7 fL (9.4-12.4); Monocytes # 0.6 K/mcL (0.0-1.3); Neutrophils # 5.2 K/mcL (1.6-8.9); Platelet Count 278 K/mcL (140-400); Red Blood Count 3.36 M/mcL (4.19-5.50); Red Cell Distribution Width 17.5 % (11.5-14.5); Segmented Neutrophils % 64.9 %; White Blood Count 8.1 K/mcL (4.3-11.1)
[2022-03-13 11:01] LABS: Alanine Aminotransferase 8 Units/L (7-52); Albumin 3.4 g/dL (3.5-5.7); Albumin/Globulin Ratio 0.9 (1.1-2.2); Alkaline Phosphatase 93 Units/L (34-104); Aspartate Amino Transferase 9 Units/L (13-39); BUN/Creatinine Ratio 15 (6-26); Bilirubin,Total 0.4 mg/dL (0.3-1.0); Blood Urea Nitrogen 11 mg/dL (6-20); Calcium 9.2 mg/dL (8.6-10.3); Carbon Dioxide 27 mEq/L (23-29); Chloride 103 mEq/L (98-107); Globulin 3.7 g/dL (2.4-3.5); Glucose 103 mg/dL (70-105); Magnesium 1.8 mg/dL (1.6-2.6); Osmolality,Calculated 284 (280-300); Phosphorous 4.7 mg/dL (2.7-4.5); Potassium 4.2 mEq/L (3.5-5.1); Sodium 137 mEq/L (136-145); Total Protein 7.1 g/dL (6.4-8.9)
[2022-03-13] MEDS ORDERED: *HR* LORazepam 2 MG/ML VIAL IVP ONE ×2 (12:13→12:15)
[2022-03-13] MEDS ORDERED: Heparin 1,000 UNITS/500 mL 500 ML ONE (14:50)
[2022-03-13] MEDS: Loratadine 10 MG TABLET PO SCH (16:42)
[2022-03-13] MEDS: Melatonin 3 MG TABLET PO PRN (22:17)
[2022-03-13] MEDS: traZODone 50 MG TABLET PO PRN (22:17)
[2022-03-14] MEDS: Vancomycin 1,250 MG/262.5 ML IV.SOLN IVPB SCH ×4 (01:17→23:30)
[2022-03-14] MEDS: Ketorolac 30 MG/ML VIAL IVP SCH ×5 (02:26→23:29)
[2022-03-14 03:41] LABS: Basophils % 0.4 %; Eosinophils # 0.5 K/mcL (0.0-0.6); Eosinophils % 6.4 %; Hematocrit 24.8 % (37.5-50.1); Hemoglobin 7.5 g/dL (12.9-16.9); Immature Granulocytes % 0.3 % (0-4); Lymphocytes # 2.3 K/mcL (0.6-4.6); Lymphocytes % 32.8 %; Mean Corpuscular HGB Conc 30.2 g/dL (31.6-35.5); Mean Corpuscular Hemoglobin 25.8 pg (28.0-33.3); Mean Corpuscular Volume 85.2 fL (83.0-100.0); Mean Platelet Volume 10.4 fL (9.4-12.4); Monocytes # 0.6 K/mcL (0.0-1.3); Monocytes % 8.8 %; Neutrophils # 3.6 K/mcL (1.6-8.9); Platelet Count 263 K/mcL (140-400); Red Blood Count 2.91 M/mcL (4.19-5.50); Red Cell Distribution Width 17.4 % (11.5-14.5); Segmented Neutrophils % 51.3 %
[2022-03-14 03:56] LABS: Alanine Aminotransferase 7 Units/L (7-52); Albumin 3.1 g/dL (3.5-5.7); Albumin/Globulin Ratio 0.9 (1.1-2.2); Alkaline Phosphatase 83 Units/L (34-104); Aspartate Amino Transferase 9 Units/L (13-39); BUN/Creatinine Ratio 21 (6-26); Bilirubin,Total 0.4 mg/dL (0.3-1.0); Blood Urea Nitrogen 14 mg/dL (6-20); Calcium 8.7 mg/dL (8.6-10.3); Carbon Dioxide 28 mEq/L (23-29); Chloride 104 mEq/L (98-107); Globulin 3.4 g/dL (2.4-3.5); Glucose 90 mg/dL (70-105); Magnesium 1.9 mg/dL (1.6-2.6); Osmolality,Calculated 284 (280-300); Phosphorous 5.4 mg/dL (2.7-4.5); Potassium 4.2 mEq/L (3.5-5.1); Sodium 137 mEq/L (136-145); Total Protein 6.5 g/dL (6.4-8.9)
[2022-03-14] MEDS: *HR* Heparin 5,000 UNIT/ML VIAL SQ SCH ×3 (05:58→20:44)
[2022-03-14] MEDS: Insulin LISPRO 300 UNITS/3 ML VIAL SUBQ SCH ×4 (07:51→20:45)
[2022-03-14] MEDS: Nicotine 14 MG PATCH.TD24 TD SCH (08:26)
[2022-03-14] MEDS: Sennosides/Docusate Sodium TABLET PO SCH ×2 (08:27→20:44)
[2022-03-14] MEDS: Famotidine 20 MG TABLET PO SCH ×2 (08:27→20:45)
[2022-03-14] MEDS: atenoloL 25 MG TABLET PO SCH (08:27)
[2022-03-14] MEDS: Aspirin Enteric Coated 81 MG Tablet PO SCH (08:27)
[2022-03-14] MEDS: Fluconazole 150 MG TABLET PO SCH (08:27)
[2022-03-14] MEDS: Gabapentin 300 MG CAPSULE PO SCH ×3 (08:27→20:44)
[2022-03-14] MEDS: Chlorhexidine Rinse 15 ML MOUTHWASH MM SCH ×2 (08:27→20:46)
[2022-03-14] MEDS: *HR* OxyCODONE Immed Rel 5 MG TABLET PO SCH ×4 (08:31→23:29)
[2022-03-14] MEDS ORDERED: atenoloL 25 MG TABLET PO ONE (10:30)
[2022-03-14] MEDS: hydrALAZINE 25 MG TABLET PO SCH ×3 (10:35→23:30)
[2022-03-14] MEDS ORDERED: Iopamidol - 370 500 ML MLS IVP ONE (14:43)
[2022-03-14] MEDS: Loratadine 10 MG TABLET PO SCH (17:41)
[2022-03-14] MEDS: traZODone 50 MG TABLET PO PRN (23:30)
[2022-03-15] MEDS: *HR* Heparin 5,000 UNIT/ML VIAL SQ SCH ×3 (05:11→21:05)
[2022-03-15] MEDS: Ketorolac 30 MG/ML VIAL IVP SCH ×2 (05:11→12:46)
[2022-03-15] MEDS: Insulin LISPRO 300 UNITS/3 ML VIAL SUBQ SCH ×4 (07:47→21:04)
[2022-03-15] MEDS: *HR* OxyCODONE Immed Rel 5 MG TABLET PO SCH ×4 (08:25→23:55)
[2022-03-15] MEDS: Sennosides/Docusate Sodium TABLET PO SCH ×2 (08:25→21:05)
[2022-03-15] MEDS: Aspirin Enteric Coated 81 MG Tablet PO SCH (08:26)
[2022-03-15] MEDS: Chlorhexidine Rinse 15 ML MOUTHWASH MM SCH ×2 (08:26→21:04)
[2022-03-15] MEDS: Fluconazole 150 MG TABLET PO SCH (08:26)
[2022-03-15] MEDS: Famotidine 20 MG TABLET PO SCH ×2 (08:26→21:05)
[2022-03-15] MEDS: Gabapentin 300 MG CAPSULE PO SCH ×3 (08:26→21:05)
[2022-03-15] MEDS: atenoloL 25 MG TABLET PO SCH (08:26)
[2022-03-15] MEDS: Vancomycin 1,250 MG/262.5 ML IV.SOLN IVPB SCH ×3 (08:27→23:55)
[2022-03-15] MEDS: Nicotine 14 MG PATCH.TD24 TD SCH (08:27)
[2022-03-15 09:33] LABS: Basophils % 0.3 %; Eosinophils # 0.6 K/mcL (0.0-0.6); Eosinophils % 8.4 %; Hematocrit 28.6 % (37.5-50.1); Hematocrit 28.7 % (37.5-50.1); Hemoglobin 8.7 g/dL (12.9-16.9); Hemoglobin 8.8 g/dL (12.9-16.9); Immature Granulocytes % 0.3 % (0-4); Lymphocytes # 1.6 K/mcL (0.6-4.6); Lymphocytes % 22.4 %; Mean Corpuscular HGB Conc 30.4 g/dL (31.6-35.5); Mean Corpuscular Hemoglobin 25.7 pg (28.0-33.3); Mean Corpuscular Volume 84.6 fL (83.0-100.0); Mean Platelet Volume 9.8 fL (9.4-12.4); Monocytes # 0.6 K/mcL (0.0-1.3); Monocytes % 8.4 %; Neutrophils # 4.3 K/mcL (1.6-8.9); Platelet Count 282 K/mcL (140-400); Red Blood Count 3.38 M/mcL (4.19-5.50); Red Cell Distribution Width 17.2 % (11.5-14.5); Segmented Neutrophils % 60.2 %; White Blood Count 7.1 K/mcL (4.3-11.1)
[2022-03-15 09:53] LABS: BUN/Creatinine Ratio 28 (6-26); Blood Urea Nitrogen 19 mg/dL (6-20); Calcium 8.9 mg/dL (8.6-10.3); Carbon Dioxide 25 mEq/L (23-29); Chloride 107 mEq/L (98-107); Glucose 102 mg/dL (70-105); Osmolality,Calculated 290 (280-300); Potassium 4.1 mEq/L (3.5-5.1); Sodium 139 mEq/L (136-145)
[2022-03-15] MEDS: hydrALAZINE 25 MG TABLET PO SCH ×2 (15:51→23:56)
[2022-03-15] MEDS: Loratadine 10 MG TABLET PO SCH (17:19)
[2022-03-15] MEDS: Melatonin 3 MG TABLET PO PRN (23:55)
[2022-03-16] MEDS: *HR* Heparin 5,000 UNIT/ML VIAL SQ SCH ×3 (05:45→20:49)
[2022-03-16] MEDS: *HR* OxyCODONE Immed Rel 5 MG TABLET PO SCH ×4 (05:45→21:05)
[2022-03-16] MEDS: Insulin LISPRO 300 UNITS/3 ML VIAL SUBQ SCH ×4 (07:53→20:50)
[2022-03-16] MEDS: Fluconazole 150 MG TABLET PO SCH (07:54)
[2022-03-16] MEDS: Nicotine 14 MG PATCH.TD24 TD SCH (07:54)
[2022-03-16] MEDS: Famotidine 20 MG TABLET PO SCH ×2 (07:55→20:49)
[2022-03-16] MEDS: Gabapentin 300 MG CAPSULE PO SCH ×3 (07:55→20:49)
[2022-03-16] MEDS: Sennosides/Docusate Sodium TABLET PO SCH ×2 (07:55→20:49)
[2022-03-16] MEDS: hydrALAZINE 25 MG TABLET PO SCH ×2 (07:55→14:59)
[2022-03-16] MEDS: atenoloL 25 MG TABLET PO SCH (07:55)
[2022-03-16] MEDS: Aspirin Enteric Coated 81 MG Tablet PO SCH (07:55)
[2022-03-16] MEDS: Chlorhexidine Rinse 15 ML MOUTHWASH MM SCH ×2 (07:55→20:50)
[2022-03-16] MEDS: Vancomycin 1,250 MG/262.5 ML IV.SOLN IVPB SCH ×2 (07:56→17:00)
[2022-03-16] MEDS: Loratadine 10 MG TABLET PO SCH (17:00)
[2022-03-16] MEDS: Melatonin 3 MG TABLET PO PRN (20:49)
[2022-03-17] MEDS: hydrALAZINE 25 MG TABLET PO SCH ×4 (00:06→16:13)
[2022-03-17] MEDS: *HR* OxyCODONE Immed Rel 5 MG TABLET PO SCH ×5 (00:13→07:58)
[2022-03-17] MEDS: *HR* Heparin 5,000 UNIT/ML VIAL SQ SCH ×2 (05:12→13:34)
[2022-03-17] MEDS: Famotidine 20 MG TABLET PO SCH (07:56)
[2022-03-17] MEDS: Gabapentin 300 MG CAPSULE PO SCH ×2 (07:56→14:14)
[2022-03-17] MEDS: atenoloL 25 MG TABLET PO SCH (07:56)
[2022-03-17] MEDS: Aspirin Enteric Coated 81 MG Tablet PO SCH (07:57)
[2022-03-17] MEDS: Insulin LISPRO 300 UNITS/3 ML VIAL SUBQ SCH ×3 (07:57→16:09)
[2022-03-17] MEDS: Fluconazole 150 MG TABLET PO SCH (07:57)
[2022-03-17] MEDS: Sennosides/Docusate Sodium TABLET PO SCH (07:57)
[2022-03-17] MEDS: Chlorhexidine Rinse 15 ML MOUTHWASH MM SCH (07:57)
[2022-03-17] MEDS: Nicotine 14 MG PATCH.TD24 TD SCH (07:57)
[2022-03-17] MEDS ORDERED: *HR* OxyCODONE Immed Rel 5 MG TABLET PO PRN (08:38)
[2022-03-17] MEDS: Vancomycin 1,250 MG/262.5 ML IV.SOLN IVPB SCH ×2 (10:12)
[2022-03-17 14:23] LABS: Influenza A PCR Negative (Negative); Influenza B PCR Negative (Negative); Resp. Syncytial Virus PCR Negative (Negative)
[2022-03-17 14:44] LABS: SARS-CoV-2 by PCR (In House) Negative (Negative)
[2022-03-17 16:12] VITALS: BP 138/90; PULSE 91; TEMP 98.6; O2SAT 96
== END 2022-03-17 18:22 | DRG 710 ==
LOC: EMEROOARM 12:49 → 2ANU 12:49 → SUATTDRO 17:48 → 2ANU 18:54 → 2NNU 02-16 12:10 → 3NENU 02-28 17:12 → ICNU 03-06 07:47 → 2NNU 03-10 13:39
PROVIDERS: ADMIT Internal Medicine; ATTEND Registered Nurse